=== PATIENT | female | born 1940 | race Caucasian/White ===

== ENCOUNTER 2017-02-27 02:42 | Inpatient (IN) | payer OTHER ==
[~2017-02-27] VITALS: Ht 160 cm; Wt 72.6 kg
[~2017-02-27 02:42] MED LIST: AMOX-CLAV 875-1 EACH PO; ASPIRIN EC81 M1 PO; BENZONATATE100 M1 PO; DAPSONE25 M1; FERROUS SULFAT325 M3 PO; FUROSEMIDE20 M1 PO; GUAIFENESIN-COD10 ML PO; LEVOTHYROXINE100 MC1 PO; MAGIC MOUTHWASH PO; MAGNESIUM500 M2 PO; METOPROLOL TART25 M1 PO; PRAVACHOL40 M1 PO; PREDNISONE20 M1 PO; PROAIR HFA8.5 GM INH; TYLENOL WITH C1 EACH PO
--- NOTE | 2017-02-27 09:42 | Operative Report ---
Operative/Inv Procedure Report Surgery Date: 02/27/17 Name of Procedure: Right total knee arthroplasty Pre-Operative Diagnosis: Primary osteoarthritis right knee Post-Operative Diagnosis: Same Estimated Blood Loss: scant Surgeon/Surgical Services Asst: ARETHA DUNBAR,JUAN JOSE Blackwell Anesthesia: block (SPINAL) IV Fluids: See anesthesia record Implants: Corneliker adrianna posterior stabilize knee, size 3 femur, size 4 tibia, 27 patellar button and an 11 mm polyethylene insert Drains: None Specimens: to pathology Tourniquet: 53 minutes Complications: None Condition: Stable Operative Indication: Patient is a 76 female with primary osteoarthritis of the right knee. She failed conservative treatment including intra-articular cortisone injections and was indicated for surgical total knee arthroplasty. The risks and benefits the procedure were described to the patient in detail and she wished to proceed with the procedure. A skilled set of hands was necessary provided by physician radiology physician assistant Sami Blackwell who aided with retraction positioning and component assembly throughout the case. Operative/Procedure Note Note: Once informed consent was obtained and the correct limb was identified the patient brought to operative room placed on table supine position. After administration of spinal anesthesia the patient's right leg had a thigh tourniquet placed a Hansen catheter was placed and the right lower extremity is prepped and draped in usual sterile fashion. To begin the procedure standard midline incision was made. Sharp dissection was carried down through skin and subcutaneous tissue and fat. A medial parapatellar arthrotomy was made and the patella was everted. Fat pad is removed from the patellar tendon. Patella thickness was measured to be 22 mm and a planned resection of 9 mm was performed on the patellar.. The patella was then sized to be a 27 patellar symmetric button and the jig for the 27 patella was placed on the patella and the lug holes were drilled. Once this was done the patella was protected and retracted laterally and the knee was placed into flexion. Z retractors were placed to protect the medial and lateral collateral ligaments. The cruciate limits were resected. The lateral and medial menisci resected as much as possible sharply with a #10 blade. Step drill was used to enter the intramedullary canal of the femur and the intramedullary distal femoral cutting guide was placed. This was set for a 6 valgus cut with 10 mm resection. The distal femoral cut was made without complication and bone was passed off as specimen. The distal femur was then sized with the sizing guide to be a size 3 femur. A a size 3 4-in-1 cutting block was placed in the distal femur and the anterior, posterior, chamfer cuts on the femur were made without complication. Bone was passed off. Curved osteotomes were used to remove any osteophytes posteriorly on the condyles. Next the box cut guide was placed on the distal femur for a size 3 femur and the box cut was made without compensation with an oscillating saw. At this point a pickle fork retractor was placed behind the tibia and the tibia was translated anteriorly after the cruciate 7 completely removed. The remainder of the menisci removed. A step drill was used to enter the intramedullary canal of the tibia for the cutting guide. The tibial cutting guide was placed and a 4 mm resection off of the lateral side of the knee was performed. The tibial cut bone was passed off as specimen as well. The tibia was then sized to be a size 4 tibia. A trial reduction was done with a [address] with a 9 mm polyethylene insert and a #3 femur and the 27 button. The patella tracked very nicely however we did do a slight lateral release. The knee had full extension and 120 of flexion. The knee was basically stable to varus and valgus stress at 0 and 60. The rotation of the tibial component was marked and the components removed. The tibial component was then pinned in the proper rotation and the keel cut was made. At this point all entrance removed the knee was placed in extension and the knee was pulse lavaged. Once the pulse lavage was done EXPAREL was injected throughout the knee. The cement was mixed on the back table. The components were cemented in place with the tibial component cemented first followed by the femoral component and the patellar button. All excess cement was removed with curette. Knee had the 9 mm trial insert placed and was placed in full extension while cement hardened. Once the cement hardened the knee was taken through a range of motion again. I found the knee to be slightly lax with valgus stress so we went up to an 11 mm polyethylene insert. The knee still had full extension with 120 of flexion with excellent tracking of the patellar button. The knee was stable at 0 and 60 now to varus and valgus stress. A 11 mm polyethylene insert was opened and placed onto the tibial tray and locked in place. Knee was pulse lavaged one final time and the tourniquet was released. The arthrotomy is closed with #1 Vicryl interrupted sutures. The subcutaneous tissues closed with #1 Vicryl and 2-0 Vicryl interrupted sutures and the skin was closed issac. A sterile dressing was applied and the patient was awakened taken recovery in stable condition.
--- NOTE | 2017-02-27 12:50 | NUR ---
NSG NOTE: PATIENT ARRIVED TO FLOOR AT 1250 FROM PACU VIA STRETCHER ACCOMPANIED BY DISTRIBUTION; PATIENT AWAKE A/OX3, RA; VSS; RT KNEE CHERYL WRAP DSG C/D/I; PATIENT STATES PAIN IS 7/10 TO RT KNEE; ON-Q TO RT ADDUCTOR INTACT; IVF RUNNING PER ORDER; MIN IN PLACE; ORIENTED TO ROOM, CALL AZEVEDO IN REACH; WILL CONT TO MONITOR
[2017-02-27 13:00] VITALS: BP 142/78
[2017-02-27 15:00] VITALS: BP 153/86
--- NOTE | 2017-02-27 16:05 | PN- Orthopedic ---
Subjective Subjective: No acute post operative events reported. Patient is POD 0, s/p right TKR. Has ambulated with rolling walker for a short distance. Denies chest pain, shortness of breath, difficulty breathing. Denies nausea and vomitting, has tolerated diet. Has carrizales catheter in place. Has on Q. Pain is controlled now. Objective Vital Signs and I&Os Vital Signs Date Time Temp Pulse Resp B/P B/P Pulse O2 O2 Flow FiO2 Mean Ox Delivery Rate 02/27 1300 98.0 63 16 142/78 93 Room Air Intake & Output 02/27 1600 02/27 0800 02/27 0000 02/26 1600 02/26 0800 02/26 0000 Intake Total Output Total 450 Balance -450 Output, Urine 450 Patient 160 lb Weight Weight Reported by Patient Measurement Method Physical Exam: General: Alert and oriented x3. no acute distress Cardiac: RRR, s1s2 Pulmonary: CTA bilaterally Abdomen: Soft, non-tender, non-distended Extremities: Moves all extremties, distal sensation intact. Motor 5/5 in plantar and dorsi flexion. Skin warm and well perfused. DP pulses palpable bilaterally. Bilateral calves soft and non-tender. Surgical Site: Right knee. Dressing dry and intact. On Q in place. No evidence of leaking. Assessment/Plan Assessment/Plan This is a 76 year old female, POD 0, s/p R tkr -Coumadin for dvt ppx to start tonight -ALPS and ambulation for mechanical ppx -Vancomycin for 24 hours for abx ppx -Percocet po for pain -Regular diet as tolerated -Activity: OOB with PT, wbat, knee immobilzer if quad function compromised -Dispo planning: Home with services in 2-3 nights, [facility] Will discuss with DR. Rojas Core Measures/Miscellaneous Venous Thromboembolism VTE Risk Factors: Age > 40, Surgery VTE Contraindications: No Contraindications VTE Diagnosis: Yes Beta Noel Is Beta Noel a Home Med? No Antibiotics Is Patient on Antibiotics? Yes If Yes: prophylaxis
[2017-02-27 17:12] VITALS: BP 122/64
[2017-02-27 20:06] VITALS: BP 112/61
[2017-02-27 22:46] VITALS: BP 146/80
[2017-02-28 02:49] VITALS: BP 130/80
[2017-02-28 06:53] VITALS: BP 140/80
--- NOTE | 2017-02-28 07:27 | PN- Orthopedic ---
Subjective Subjective: Patient is postop day #1 status post right total knee arthroplasty. She is doing well. No major complaints. Pain is well-controlled. Objective Vital Signs and I&Os Vital Signs Date Time Temp Pulse Resp B/P B/P Pulse O2 O2 Flow FiO2 Mean Ox Delivery Rate / 0653 97.3 57 18 140/80 97 Room Air / 0249 97.2 50 18 130/80 95 Room Air / 2246 97.8 52 18 146/80 93 / 2157 60 120/60 / 2006 97.5 53 20 112/61 94 /07 1712 98.6 56 18 122/64 95 06/07 1602 70 153/86 06/ 1500 98.9 70 16 153/86 93 Room Air / 1300 98.0 63 16 142/78 93 Room Air Intake & Output / 0800 06/08 0000 /07 1600 / 0800 06/ 0000 / 1600 Intake Total 800 500 525 Output Total 800 575 450 Balance 0 -75 75 Intake, IV 600 300 75 Intake, Oral 200 200 450 Number 0 0 0 Bowel Movements Output, Urine 800 575 450 Patient 160 lb Weight Weight Reported by Patient Measurement Method On physical exam the patient is resting comfortably. She is awake alert and oriented. The right lower extremity dressings in place. The right lower extremity is grossly neurovascularly intact. She is moving all of her toes. Assessment/Plan Assessment/Plan Status post right total knee arthroplasty. The patient's plan today will be for physical therapy weightbearing as tolerated and range of motion to the right knee. Continue with anticoagulation. Follow-up labs this morning. Core Measures/Miscellaneous Venous Thromboembolism VTE Risk Factors: Age > 40, Surgery VTE Contraindications: No Contraindications VTE Diagnosis: Yes Beta Noel Is Beta Noel a Home Med? No Antibiotics Is Patient on Antibiotics? Yes If Yes: prophylaxis
[2017-02-28 09:09] LABS: ABSOLUTE BASOPHIL COUNT 0 /CUMM (0.0-0.2); ABSOLUTE EOSINOPHIL COUNT 0 /CUMM (0.0-0.7); ABSOLUTE GRANULOCYTE CT 8.9 /CUMM (1.4-6.5); ABSOLUTE LYMPH COUNT 1.1 /CUMM (1.2-3.4); ABSOLUTE MONOCYTE COUNT 0.8 /CUMM (0.10-0.60); BASOPHIL % 0.2 % (0.0-2.0); EOSINOPHIL % 0 % (0-5); GRANULOCYTE % 82.7 % (42.2-75.2); HEMATOCRIT 33.9 % (37-47); MEAN CORPUSCULAR HGB 31.9 PG (27.0-31.0); MEAN CORPUSCULAR HGB CONC 32.8 G/DL (33.0-37.0); MEAN CORPUSCULAR VOLUME 97.4 FL (81.0-99.0); MEAN PLATELET VOLUME 9.6 FL (7.4-10.4); PLATELET COUNT 204 /CUMM (130-400); RBC DISTRIBUTION WIDTH 12.7 % (11.5-14.5); RED BLOOD CELL CT 3.48 /CUMM (4.20-5.40); WHITE BLOOD CELL COUNT 10.7 /CUMM (4.8-10.8)
[2017-02-28 14:40] VITALS: BP 132/60
--- NOTE | 2017-02-28 16:22 | Surgical Discharge Summary ---
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 Home Who Do You Live With? Significant Other Services at Home: None What is Your Primary Language? Czech Review of Systems: See H and P Hospital Course Course Attending Physician: JUAN JOSE CARIAS MD Primary Care Physician: RUDY DUNBAR,[facility] Course: Pt is a 76yo female who underwent a R TKR by Dr Crystal balbuena 02/27. She tolerated the procedure well and was returned to the recovery room in good condition. Postoperatively she was on eliquis for DVT prophylaxis. Over the course of her stay, her pain was well controlled, she was able to void spontaneously, she tolerated a regular diet and she worked with PT. She was cleared by PT for discharge. Allergies: Coded Allergies: erythromycin base (HIVES 04/03/16) latex (RASH 04/03/16) Significant Procedures: R TKR - see operative report Disposition Summary Disposition Principal Diagnosis: DJD Additional Diagnosis: hld, autoimmune, htn Discharge Disposition: home health services Discharge Instructions General Discharge Information Code Status: Full Code Patient's Diet: regular Patient's Activity: Weight-bearing as tolerated right lower extremity Follow-Up Instructions/Appts: Call Dr. Easley's office for staple removal in 2 weeks Copies To: CRYSTAL DUNBAR,JUAN JOSE Sanabria
--- NOTE | 2017-02-28 19:53 | NUR ---
PT WORKED WITH PATIENT TODAY, AMBULATED AROUND FLOOR AND DID STAIRS. C/O INCREASED PAIN FROM YESTERDAY. MEDICATED PER EMAR WITH PERCOCET. SEEN BY ANESTHESIA WHO INCREASED ON Q PUMP TO 14ML/HR. PATIENT VISITING WITH PATIENT MOST OF SHIFT. SAFETY MAINTAINED.
[2017-02-28 21:48] VITALS: BP 124/68
--- NOTE | 2017-03-01 00:13 | NUR ---
NURSING NOTE: PATIENT C/O 1O/10 PAIN IN RIGHT KNEE AT THIS TIME. A&OX3, GUARDING KNEE, NEW ICE PACK APPLIED TO AREA. ALL AVAILABLE PAIN MEDICATIONS PREVIOUSLY GIVEN. JAYDEN SIBLEY 416 MADE AWARE; GIVE PRN PERCOCET 2 TABS 1 HOUR EARLY PER MD & EMAR. WILL CONTINUE TO MONITOR.
[2017-03-01 00:50] VITALS: BP 120/60
[2017-03-01 06:25] VITALS: BP 150/74
--- NOTE | 2017-03-01 07:21 | PN- Orthopedic ---
See Addendum Subjective Subjective: POD#2 S/P RIGHT TKA SEVERE RIGHT KNEE PAIN OVERNIGHT SHE THINKS HIS MAY BE RELATED TO A LOT OF PT YESTERDAY VERY UNCOMFORTABLE TODAY WITH DRSG CHANGE THIS AM DENIES CP, SOB, NO N+V WITH DIET AMBULATING WITH PT, WANTS TO GO HOME UPON D/C Objective Vital Signs and I&Os Vital Signs Date Time Temp Pulse Resp B/P B/P Pulse O2 O2 Flow FiO2 Mean Ox Delivery Rate 03/01 0625 99.4 65 20 150/74 92 Room Air / 0050 98.4 65 24 120/60 95 Room Air / 2148 99.0 57 20 124/68 96 06/08 2119 57 124/68 /08 1440 98.5 60 20 132/60 93 Room Air 02/28 1012 64 134/71 Intake & Output / 0800 06/09 0000 06/08 1600 /08 0800 06/08 0000 /07 1600 Intake Total 600 500 800 500 525 Output Total 400 500 800 575 450 Balance 200 0 0 -75 75 Intake, IV 0 600 300 75 Intake, Oral 600 500 200 200 450 Number 0 0 0 Bowel Movements Output, Urine 400 500 800 575 450 Patient 160 lb Weight Weight Reported by Patient Measurement Method Physical Exam: CV: RRR LUNGS: CLEAR ABD: SOFT, +BS EXT: DRSG CHANGED, WOUND C/D/I CALVES SOFT, BILAT BILAT DISTAL CMS INTACT Assessment/Plan Assessment/Plan ORTHO STABLE PAIN CONTROL ISSUES PLAN TORADOL X1 NOW ELIQUIS FOR DVT PROPHYLAXIS CONTINUE OOB WITH PT HOME D/C PLANNING Core Measures/Miscellaneous Venous Thromboembolism VTE Risk Factors: Age > 40, Surgery VTE Contraindications: No Contraindications VTE Diagnosis: Yes Beta Noel Is Beta Noel a Home Med? No Antibiotics Is Patient on Antibiotics? Yes If Yes: prophylaxis
--- NOTE | 2017-03-01 10:18 | RADIOLOGY REPORT ---
EXAMINATION: XR KNEE, RIGHT CLINICAL INFORMATION: Status post right total knee arthroplasty COMPARISON: None TECHNIQUE: Two views of the right knee. FINDINGS: Patient is status post right total knee arthroplasty. Hardware components appear well-seated and in anatomic alignment. No acute fracture is seen. There are postsurgical changes of the posterior aspect of the patella. There is soft tissue edema and soft tissue gas about the knee along with anterior skin issac. IMPRESSION: Appropriate alignment of the right total knee arthroplasty.
[2017-03-01 14:39] VITALS: BP 143/78
[2017-03-01 22:15] VITALS: BP 136/73
[2017-03-02 07:03] VITALS: BP 146/70
--- NOTE | 2017-03-02 09:00 | PN- Orthopedic ---
Subjective Subjective: pod#3 s/p right tka no major issues overnight deneis cp, sob, no n+v with diet doing well with pt tolerating diet Objective Vital Signs and I&Os Vital Signs Date Time Temp Pulse Resp B/P B/P Pulse O2 O2 Flow FiO2 Mean Ox Delivery Rate / 0703 98.4 66 20 146/70 93 Room Air 03/01 2215 98.4 68 20 136/73 94 Room Air 03/01 2132 136/72 / 1439 99.0 65 20 143/78 94 Room Air 03/01 1028 80 134/62 Intake & Output / 1600 03/02 0800 03/02 0000 03/01 1600 03/01 0800 03/01 0000 Intake Total 120 720 510 600 Output Total 400 300 400 Balance -280 720 210 200 Intake, IV 30 Intake, Oral 120 720 480 600 Number 0 Bowel Movements Output, Urine 400 300 400 Physical Exam: cv: rrr lungs: clear abd: soft, +bs ext: no edema no calf tnderness distal cms intact Assessment/Plan Assessment/Plan ortho stable plan ok for home d/c today Core Measures/Miscellaneous Venous Thromboembolism VTE Risk Factors: Age > 40, Surgery VTE Contraindications: No Contraindications VTE Diagnosis: Yes Beta Noel Is Beta Noel a Home Med? No Antibiotics Is Patient on Antibiotics? Yes If Yes: prophylaxis
--- NOTE | 2017-03-02 09:16 | Patient Discharge Instructions ---
Discharge Instructions General Discharge Information You were seen/treated for: Primary osteoarthritis right knee You had these procedures: Right total knee arthroplasty Watch for these problems: Temp greater than 101.5, increased wound drainage/redness, increased right knee pain with ambulation Call Surgeon to remove: Mikey No bath, but you may shower: Yes Other wound care: Keep wound clean and dry, dry sterile dressing to right knee daily Diet Continue normal diet: Yes Activity Activity Limited to: Weight bear as tolerated Other activity limits: No strenuous activity Acute Coronary Syndrome Inclusion Criteria At DC or during hospital stay patient has or had the following: ACS DIAGNOSIS No Discharge Core Measures Meds if any: Prescribed or Continued at Discharge Meds if any: NOT Prescribed or Continued at Discharge Congestive Heart Failure Inclusion Criteria At DC or during hospital stay patient has or had the following: CHF DIAGNOSIS No Discharge Core Measures Meds if any: Prescribed or Continued at Discharge Meds if any: NOT Prescribed or Continued at Discharge Cerebrovascular accident Inclusion Criteria At DC or during hospital stay patient has or had the following: CVA/TIA Diagnosis No Discharge Core Measures Meds if any: Prescribed or Continued at Discharge Meds if any: NOT Prescribed or Continued at Discharge Venous thromboembolism Inclusion Criteria VTE Diagnosis No VTE Type NONE VTE Confirmed by (Test) NONE Discharge Core Measures - Per Current guidelines, there needs to be overlap - treatment for the first 5 days of Warfarin therapy. - If discharged on Warfarin prior to 5 days of - overlap therapy, the patient will need to be - assessed for post discharge needs including - *Post discharge parental anticoagulation - *Warfarin and/or parental anticoagulation education - *Follow up date to check INR post discharge At least 5 days overlap therapy as Inpatient No Meds if any: Prescribed or Continued at Discharge Note: Overlap Therapy is Warfarin and Anticoagulant Meds if any: NOT Prescribed or Continued at Discharge
[2017-03-02] MEDS ORDERED: DOCUSATE SODIU100 M3 PO (09:21)
[2017-03-02] MEDS ORDERED: PERCOCET 5-3251 EACH PO (09:21)
[2017-03-02] MEDS ORDERED: MIRALAX119 GM PO (09:21)
[2017-03-02] MEDS ORDERED: ELIQUIS2.5 M1 PO (09:21)
[2017-03-02 10:53] VITALS: BP 124/66
== END 2017-03-02 12:43 | disposition home health service (06) | DRG 470 ==
LOC: 2NB 02:42 → SDA 02:42 → ENRESERV 11:40 → ENTRNSPT 12:28 → EDTRNSPTTYP 12:36 → EDTRNSPT 12:36 → 2NB 12:45 → CMPTRNSPT 12:52 → ENPENDDIS 03-02 09:36 → 2NB 03-02 12:43
PROVIDERS: Physician Assistant Surgical; ADMIT Orthopaedic Surgery Foot and Ankle Surgery
PROC: 0SRC0J9 Replacement of Right Knee Joint with Synthetic Substitute, Cemented, Open Approach (ICD-10-PCS; principal; 2017-02-27)
DX: M17.11 Unilateral primary osteoarthritis, right knee (principal); L10.0 Pemphigus vulgaris; I10 Essential (primary) hypertension; I25.10 Atherosclerotic heart disease of native coronary artery without angina pectoris; E78.5 Hyperlipidemia, unspecified; K21.9 Gastro-esophageal reflux disease without esophagitis; E03.9 Hypothyroidism, unspecified; I65.29 Occlusion and stenosis of unspecified carotid artery; G47.33 Obstructive sleep apnea (adult) (pediatric)
CPT/HCPCS: 2NBP; 36415; 73560-RT; 82436; 87086; 88305; 97110-GO; 97116-GO; 97161-GP; 97530-GO; C1713; C9290; J0131; J1885; J2795; J3370; J7040

== ENCOUNTER 2018-02-24 21:59 | Observation (INO) | payer OTHER ==
[~2018-02-24] VITALS: Ht 160 cm; Wt 64.4 kg
[~2018-02-24 21:59] MED LIST changes: +DOCUSATE SODIU100 M3 PO; +ELIQUIS2.5 M1 PO; +MIRALAX119 GM PO; +PERCOCET 5-3251 EACH PO
--- NOTE | 2018-02-24 22:23 | ED GENERAL ADULT ---
See Addendum History of Present Illness General Chief Complaint: General Adult Stated Complaint: HYPOGLYCEMIA Source: patient, family, old records, EMS Exam Limitations: no limitations Vital Signs & Intake/Output Vital Signs & Intake/Output Vital Signs Date Time Temp Pulse Resp B/P B/P Pulse O2 O2 Flow FiO2 Mean Ox Delivery Rate 02/25 0825 98.7 66 18 125/58 99 Room Air 02/25 0134 97.5 68 18 150/92 99 Room Air 02/24 2251 98.2 66 18 118/70 97 Room Air ED Intake and Output 02/25 0000 02/24 1200 Intake Total 0 Output Total Balance 0 Intake, Oral 0 Allergies Coded Allergies: erythromycin base (HIVES 04/03/16) latex (RASH 04/03/16) morphine (Mild, MAKES HER "ANGRY" 08/17/17) polyethylene glycol 3350 (From MIRALAX) (Mild, MAKES HER "GAG" 08/17/17) Reconcile Medications Doxycycline Hyclate 100 MG CAPSULE 1 CAP PO BID ANTIBIOTIC (Reported) Furosemide 20 MG TABLET 1 TAB PO DAILY PRN EDEMA (Reported) Levothyroxine Sodium 100 MCG TABLET 1 TAB PO DAILY THYROID (Reported) Magnesium Oxide (Magnesium) 500 MG CAPSULE 1 CAP PO DAILY LEG CRAMPS ( Reported) Metoprolol Tartrate 25 MG TABLET 1 TAB PO BID BP (Reported) Oxycodone HCl/Acetaminophen (Percocet 5-325 MG Tablet) 5 MG-325 MG TABLET 1-2 TAB PO Q4-6 PRN PAIN Potassium Chloride 10 MEQ TABLET.ER 1 TAB PO DAILY SUPPLEMENT (Reported) Rosuvastatin Calcium (Crestor) 10 MG TABLET 1 TAB PO DAILY HYPERLIPIDEMIA ( Reported) Triage Note: BIBA FROM HOME. PER EMS, FAMILY REPORTED THAT THE PT WAS WEAK, NOT ACTING RIGHT, AND HAD SLURRED SPEECH. EMS STATED THAT PT DID NOT HAVE SLURRED SPEECH WHILE IN THEIR CARE BUT WAS SPEAKING SLOWLY. EMS STATED THAT ALL NEUROS WERE INTACT WHILE IN THEIR CARE. INITIAL BG = 39. SECOND BG = 68. EMS ADMINISTERED 1 TUBE ORAL GLUCOSE. 22 GA IV ESTABLISHED IN LEFT AC. AT THIS TIME, PT C/O "FEELING SHAKY AND WEAK." PT DENIES ANY OTHER COMPLAINTS AT THIS TIME. PT A&OX3 AND SPEAKING CLEARLY AT THIS TIME. NO NEURO DEFICITS NOTED NOW. Triage Nurses Notes Reviewed? yes HPI: Patient had a normal day and she did her normal activities. Shortly after dinner her family noticed that she was confused and was slurring her words. Family states that she was yelling at her which is highly unusual for her. EMS was contacted. EMS states that they did not notice any slurred speech however she was confused. A fingerstick was performed and her sugar was 39. Patient is not a diabetic. Patient was given oral glucose with resolution of her symptoms. Patient currently feels fine and has no current complaints. (Arnav DUNBAR,Carter Bolden) Past History Travel History Traveled to [place] past 21 day No Medical History Any Pertinent Medical History? 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 No (Arnav DUNBAR,Carter Bolden) Review of Systems Review of Systems Constitutional: Reports: no symptoms. EENTM: Reports: no symptoms. Respiratory: Reports: no symptoms. Cardiovascular: Reports: no symptoms. GI: Reports: no symptoms. Genitourinary: Reports: no symptoms. Musculoskeletal: Reports: no symptoms. Skin: Reports: no symptoms. Neurological/Psychological: Reports: see HPI. Hematologic/Endocrine: Reports: no symptoms. Immunologic/Allergic: Reports: no symptoms. All Other Systems: Reviewed and Negative (Arnav DUNBAR,Carter Bolden) Physical Exam Physical Exam General Appearance: well developed/nourished, alert, awake, anxious, mild distress Head: atraumatic, normal appearance Eyes: Bilateral: PERRL, EOMI. Ears, Nose, Throat: normal pharynx, normal ENT inspection, hearing grossly normal Neck: normal inspection, supple, full range of motion Respiratory: normal breath sounds, chest non-tender, no respiratory distress, lungs clear Cardiovascular: regular rate/rhythm, normal peripheral pulses Gastrointestinal: normal bowel sounds, soft, non-tender, no organomegaly Back: normal inspection, normal range of motion Extremities: normal inspection, normal capillary refill, normal range of motion, no edema Neurologic/Psych: no motor/sensory deficits, awake, alert, oriented x 3, normal gait, normal mood/affect Skin: intact, normal color, warm/dry Lymphatic: no anterior cervical joe Core Measures ACS in differential dx? No CVA/TIA Diagnosis: No Sepsis Present: No Sepsis Focused Exam Completed? No (Arnav DUNBAR,Carter Bolden) Progress Differential Diagnoses I considered the following diagnoses in my evaluation of the patient: [ ELECTROLYTE ABNORMALITY, HYPOGLYCMIEA, MASS] Plan of Care: Orders Procedure Date/time Status Consistent Carbohydrate 1 02/25 L Active Regular Diet 02/25 B Complete POTASSIUM 02/25 0800 Complete INSULIN,SERUM 02/25 0800 Complete GLUCOSE 02/25 0800 Complete C-PEPTIDE Ref$ 02/25 0800 Active CORTISOL AM 02/25 0800 Complete Add-on Test (ER Only) 02/25 0554 Active TROPONIN LEVEL 02/25 0152 Complete EKG 02/[address] in observation 02/25 0113 Active ED Holding Orders 02/25 0113 Active Patient Data 02/25 0113 Active Vital Signs 02/25 0113 Active Code Status 02/25 0113 Active Add-on Test (ER Only) 02/24 2322 Active THYROID STIMULATING HORMONE 02/24 2230 Complete TOTAL TRIODOTHYROXINE 02/24 2230 Complete MAGNESIUM 02/24 2230 Complete FREE T4 02/24 2230 Complete URINALYSIS 02/24 2222 Complete TROPONIN LEVEL 02/24 2222 Complete INSULIN,SERUM 02/24 2222 Complete COMPREHENSIVE METABOLIC PANEL 02/24 2222 Complete CBC WITHOUT DIFFERENTIAL 02/24 2222 Complete EKG 02/24 2222 Active Intake & Output 02/24 2218 Active FingerStick- Glucose 02/24 2206 Active Laboratory Tests 02/25/18 0821: Glucose 91, Insulin Level 5.2, Cortisol AM Sample 12.6 02/25/18 0821: C-Peptide Pending 02/25/18 0418: Urine Color YEL, Urine Clarity CLEAR, Urine pH 6.0, Ur Specific [place] 1.010, Urine Protein NEG, Urine Ketones TRACE H, Urine Nitrite NEG, Urine Bilirubin NEG, Urine Urobilinogen 0.2, Ur Leukocyte Esterase NEG, Ur Microscopic EXAM NOT REQUIRED, Urine Hemoglobin NEG, Urine Glucose NEG 02/25/18 0223: Troponin I 0.03 02/24/18 2230: Anion Gap 13, Estimated GFR > 60, BUN/Creatinine Ratio 20.0, Glucose 115 H, Insulin Level 31.7 H, Calcium 8.9, Magnesium 1.8, Total Bilirubin 0.4, AST 30, ALT 28, Alkaline Phosphatase 62, Troponin I < 0.01, Total Protein 6.0 L, Albumin 3.7, Globulin 2.3, Albumin/Globulin Ratio 1.6, TSH 0.398, Free T4 1.22, Total T3 1.02, CBC w Diff NO MAN DIFF REQ, RBC 4.05 L, MCV 90.3, MCH 30.1, MCHC 33.3, RDW 13.5, MPV 8.9, Gran % 68.4, Lymphocytes % 23.9, Monocytes % 4.8, Eosinophils % 2.6, Basophils % 0.3, Absolute Granulocytes 5.9, Absolute Lymphocytes 2.1, Absolute Monocytes 0.4, Absolute Eosinophils 0.2, Absolute Basophils 0 Diagnostic Imaging: Viewed by Me: CT Scan. Discussed w/RAD: CT Scan. Radiology Impression: PATIENT: JEFF CANTU PRESENT AGE: 77 PATIENT ACCOUNT NO: [id number] : 42 LOCATION: [facility] ORDERING PHYSICIAN: Carter José MD SERVICE DATE: 02/24/18 EXAM TYPE: CAT - CT HEAD WO IV CONTRAST EXAMINATION: CT HEAD WITHOUT CONTRAST CLINICAL INFORMATION: Confusion, hypoglycemic, question CVA COMPARISON: 06/25/2009 TECHNIQUE: Contiguous axial imaging was performed from the skull base to vertex without intravenous administration of contrast. DLP: 600.54 mGy-cm FINDINGS: There is no evidence of acute intracranial hemorrhage or territorial infarction. No abnormal mass effect or midline shift is seen. Walden to white matter differentiation is well preserved. No extra-axial fluid collections are identified. The ventricles are normal in size. There is mild periventricular white matter hypoattenuation consistent with chronic small vessel ischemic disease. Mild volume loss is noted. The osseous structures and soft tissues are normal. The mastoid air cells and visualized portions of the paranasal sinuses are well aerated. IMPRESSION: No acute intracranial pathology. DICTATED BY: Martin Owen MD DATE/TIME DICTATED:02/25/1821 VP STRATEGY:LON DATE/TIME TRANSCRIBED:02/25/1821 CONFIDENTIAL, DO NOT COPY WITHOUT APPROPRIATE AUTHORIZATION. <Electronically signed in Other Vendor System> SIGNED BY: Martin Owen MD 02/25/1827, PATIENT: JEFF CANTU PRESENT AGE: 77 PATIENT ACCOUNT NO: [id number] : 42 LOCATION: [facility] ORDERING PHYSICIAN: Carter José MD SERVICE DATE: EXAM TYPE: CAT - CT ABD & PELVIS W IV CONTRAST; CT CHEST W IV CONTRAST EXAMINATION: CONTRAST-ENHANCED CT OF THE CHEST; CONTRAST-ENHANCED CT OF THE ABDOMEN AND PELVIS INDICATION: Confusion, hypoglycemia, question infection COMPARISON: None TECHNIQUE: 95 mL Optiray 320 IV contrast was utilized. Multidetector helical imaging was performed through the chest, abdomen, and pelvis. Coronal and sagittal reformatted images were created at the technologist workstation. DLP: 441.43 mGy-cm FINDINGS: Chest: No regions of pulmonary consolidation. Tiny nodules adjacent to the left major fissure and right minor fissure are likely benign and suggestive of lymph nodes. No pneumothorax or pleural effusion. The visualized thyroid gland is unremarkable. There are subcentimeter mediastinal lymph nodes within the range of normal variation. Cardiac size is within normal limits; no pericardial effusion. Coronary artery calcifications are present. There is atherosclerotic calcification along the aorta. No axillary lymphadenopathy is present. Abdomen/Pelvis: Patient is status post cholecystectomy. There is intrahepatic biliary ductal dilatation which may be physiologic in this setting. The common bile duct appears near the upper limits of normal in caliber for the postcholecystectomy state. No focal hepatic abnormality is seen. The spleen, pancreas, and adrenal glands are within normal limits. Bilateral nephrograms are symmetric. No hydronephrosis. No obstructing renal or ureteral calculi are present. The urinary bladder is unremarkable. There are postsurgical changes along the stomach suggesting prior gastric bypass surgery. No evidence of bowel obstruction or significant wall thickening. The appendix is unremarkable. No free fluid or free air is identified. There is atherosclerotic calcification along the aorta. No retroperitoneal or pelvic lymphadenopathy is seen. Degenerative changes are noted in the spine. IMPRESSION : 1. Intrahepatic biliary ductal dilatation, of uncertain clinical significance and possibly physiologic in the setting of prior cholecystectomy. 2. No additional acute findings identified in the chest, abdomen, or pelvis. DICTATED BY: Martin Owen MD DATE/TIME DICTATED:02/25/1838 VP STRATEGY: LON DATE/TIME TRANSCRIBED:02/25/1838 CONFIDENTIAL, DO NOT COPY WITHOUT APPROPRIATE AUTHORIZATION. <Electronically signed in Other Vendor System> SIGNED BY: Martin Owen MD 02/25/18 0056 Initial ED EKG: NSR, nonspecific ST T wave chg Prior EKG: unchanged Repeat EKG: unchanged Rhythm Strip: normal sinus rhythm Hand-Off Endorsed To: Emeka Allred DO Endorsed Time: 0700 Pending: labs Comments: Discussed with Dr. syed, labs were redrawn at 8 AM. The patient is to remain nothing by mouth until then with out of the fingersticks. (Arnav DUNBAR,Carter Bolden) Comments: Attending physician addendum at 0957 hours on 02/25/2018, Dr. Emeka Allred: I assumed care from Dr. José at the time of shift change. At that time the patient was in ED observation status and we were awaiting consultation from Dr. syed from endocrinology as well as morning laboratory values including repeat insulin level, repeat cortisol, fingerstick glucose, and potassium levels. Those studies came back showing significant improvement in her. She elevated insulin level of 31, now 5.2; her cortisol is within normal range at 12.6; her fingerstick glucose is 91, and her potassium has increased from 3-4.7. She did have a slight bump in her troponin which was previously less than 0.01, and is now 0.03. However, I discussed this with her at length and she has reported no chest pain or other cardiac features whatsoever. Therefore, being that this is still within the margin of error, and my suspicion for acute coronary syndrome is low, I feel that it is not mandatory to follow-up on that acutely. The patient strongly desires to return home, and Dr. syed feels that this is reasonable. She asked that the patient check her fingerstick glucose 3 times daily, stick to a low-carb and high protein diet, and follow-up with them in the office in 2-3 weeks, or sooner if she presses further hypoglycemic episodes. The patient agrees to this plan, and was stable at time of discharge. (Emeka Allred DO) Departure Departure Disposition: STILL A PATIENT Condition: Stable Clinical Impression Primary Impression: Hypoglycemia Referrals: Jose DUNBAR,Carter Thompson MD,[place] (PCP/Family) Additional Instructions: FOLLOW UPW ITH DR. SHIRLEY RETURN IF SYMPTOMS WORSEN OR FOR ANY CONCERNS Departure Forms: Customer Survey General Discharge Information (Carter José MD) Critical Care Note Critical Care Note Critical Care Time: mins: (90 MIN) (Carter José MD) ED Attending Observation Initial Observation Note: I have seen and personally examined JEFF CANTU on 02/25/18 at 0113. I agree with the current emergency department documentation. The disposition (admission or discharge) is uncertain at this time, she needs a period of observation for the following reason(s): [FREQ FINGER STICKS, REPEAT TROP, RE- EVAL] The ED Nurse caring for this patient has been personally informed as to what the patient is being observed for. Observation Re-Evaluation: I have reevaluated JEFF CANTU on 02/25/18 at 0412. The physical findings that support the continued need to observe this patient include [patient's finger stick his tongue to 59. Patient will be given juice to drink and we will continue to closely monitor.]. (Carter José MD)
[2018-02-24 22:39] LABS: ABSOLUTE BASOPHIL COUNT 0 /CUMM (0.0-0.2); ABSOLUTE EOSINOPHIL COUNT 0.2 /CUMM (0.0-0.7); ABSOLUTE GRANULOCYTE CT 5.9 /CUMM (1.4-6.5); ABSOLUTE LYMPH COUNT 2.1 /CUMM (1.2-3.4); ABSOLUTE MONOCYTE COUNT 0.4 /CUMM (0.10-0.60); BASOPHIL % 0.3 % (0.0-2.0); EOSINOPHIL % 2.6 % (0-5); GRANULOCYTE % 68.4 % (42.2-75.2); HEMATOCRIT 36.6 % (37-47); MEAN CORPUSCULAR HGB 30.1 PG (27.0-31.0); MEAN CORPUSCULAR HGB CONC 33.3 G/DL (33.0-37.0); MEAN CORPUSCULAR VOLUME 90.3 FL (81.0-99.0); MEAN PLATELET VOLUME 8.9 FL (7.4-10.4); PLATELET COUNT 203 /CUMM (130-400); RBC DISTRIBUTION WIDTH 13.5 % (11.5-14.5); RED BLOOD CELL CT 4.05 /CUMM (4.20-5.40); WHITE BLOOD CELL COUNT 8.6 /CUMM (4.8-10.8)
[2018-02-24] MEDS ORDERED: CRESTOR10 M1 PO (22:59)
[2018-02-24] MEDS ORDERED: POTASSIUM CHLO10 ME4 PO (22:59)
[2018-02-24] MEDS ORDERED: DOXYCYCLINE HY100 M2 PO (23:00)
--- NOTE | 2018-02-25 00:28 | CT SCAN REPORT ---
EXAMINATION: CT HEAD WITHOUT CONTRAST CLINICAL INFORMATION: Confusion, hypoglycemic, question CVA COMPARISON: 06/25/2009 TECHNIQUE: Contiguous axial imaging was performed from the skull base to vertex without intravenous administration of contrast. DLP: 600.54 mGy-cm FINDINGS: There is no evidence of acute intracranial hemorrhage or territorial infarction. No abnormal mass effect or midline shift is seen. Walden to white matter differentiation is well preserved. No extra-axial fluid collections are identified. The ventricles are normal in size. There is mild periventricular white matter hypoattenuation consistent with chronic small vessel ischemic disease. Mild volume loss is noted. The osseous structures and soft tissues are normal. The mastoid air cells and visualized portions of the paranasal sinuses are well aerated. IMPRESSION: No acute intracranial pathology.
--- NOTE | 2018-02-25 00:56 | CT SCAN REPORT ---
EXAMINATION: CONTRAST-ENHANCED CT OF THE CHEST; CONTRAST-ENHANCED CT OF THE ABDOMEN AND PELVIS INDICATION: Confusion, hypoglycemia, question infection COMPARISON: None TECHNIQUE: 95 mL Optiray 320 IV contrast was utilized. Multidetector helical imaging was performed through the chest, abdomen, and pelvis. Coronal and sagittal reformatted images were created at the technologist workstation. DLP: 441.43 mGy-cm FINDINGS: Chest: No regions of pulmonary consolidation. Tiny nodules adjacent to the left major fissure and right minor fissure are likely benign and suggestive of lymph nodes. No pneumothorax or pleural effusion. The visualized thyroid gland is unremarkable. There are subcentimeter mediastinal lymph nodes within the range of normal variation. Cardiac size is within normal limits; no pericardial effusion. Coronary artery calcifications are present. There is atherosclerotic calcification along the aorta. No axillary lymphadenopathy is present. Abdomen/Pelvis: Patient is status post cholecystectomy. There is intrahepatic biliary ductal dilatation which may be physiologic in this setting. The common bile duct appears near the upper limits of normal in caliber for the postcholecystectomy state. No focal hepatic abnormality is seen. The spleen, pancreas, and adrenal glands are within normal limits. Bilateral nephrograms are symmetric. No hydronephrosis. No obstructing renal or ureteral calculi are present. The urinary bladder is unremarkable. There are postsurgical changes along the stomach suggesting prior gastric bypass surgery. No evidence of bowel obstruction or significant wall thickening. The appendix is unremarkable. No free fluid or free air is identified. There is atherosclerotic calcification along the aorta. No retroperitoneal or pelvic lymphadenopathy is seen. Degenerative changes are noted in the spine. IMPRESSION: 1. Intrahepatic biliary ductal dilatation, of uncertain clinical significance and possibly physiologic in the setting of prior cholecystectomy. 2. No additional acute findings identified in the chest, abdomen, or pelvis.
[2018-02-25 08:25] VITALS: BP 125/58
--- NOTE | 2018-02-25 12:25 | Cons- Endocrinology ---
General Information and HPI Consulting Request Date of Consult: 02/25/18 Requested By: ER Reason for Consult: evaluation of hypoglycemia Source of Information: patient Exam Limitations: no limitations History of Present Illness: Patient is a 77 years old female who has had hx of hypothyroidism and gastric bypass surgery done in 2002 ( lost 100 pounds) and revised Alan-En -Y Gastric bypass in 2012 ( lost another 30 pounds), was in usual status of health, presented with hypoglycemia of glucose level of 39. Patient had a normal day yesterday during the day. Shortly after dinner her family noticed that she was confuseds. EMS was contacted. A fingerstick was performed and her sugar was 39. Patient is not a diabetic. Patient was given oral glucose with resolution of her symptoms. In ER, the blood work showed glucose level of 115, Cr 0.8, TSH 0.398, free T4 1.22 and TT3 1.02, Insulin 31.7. Overnight, her FSG was down to 57 again at around 4 AM. Juice was given. Since then, her FSGs were 83, 78 and 93. When I saw her at aound 8 am, she is alert and oriented w/o special complaints. She is eager to go home. Repeat blood work done at 8 am showed glucose level 91, K 4.7, am cortisol 12.6 and insulin 5.2. Allergies/Medications Allergies: Coded Allergies: erythromycin base (HIVES 04/03/16) latex (RASH 04/03/16) morphine (Mild, MAKES HER "ANGRY" 08/17/17) polyethylene glycol 3350 (From MIRALAX) (Mild, MAKES HER "GAG" 08/17/17) Home Med List: Doxycycline Hyclate 100 MG CAPSULE 1 CAP PO BID ANTIBIOTIC (Reported) Furosemide 20 MG TABLET 1 TAB PO DAILY PRN EDEMA (Reported) Levothyroxine Sodium 100 MCG TABLET 1 TAB PO DAILY THYROID (Reported) Magnesium Oxide (Magnesium) 500 MG CAPSULE 1 CAP PO DAILY LEG CRAMPS ( Reported) Metoprolol Tartrate 25 MG TABLET 1 TAB PO BID BP (Reported) Oxycodone HCl/Acetaminophen (Percocet 5-325 MG Tablet) 5 MG-325 MG TABLET 1-2 TAB PO Q4-6 PRN PAIN Potassium Chloride 10 MEQ TABLET.ER 1 TAB PO DAILY SUPPLEMENT (Reported) Rosuvastatin Calcium (Crestor) 10 MG TABLET 1 TAB PO DAILY HYPERLIPIDEMIA ( Reported) Review of Systems Review of Systems Constitutional: Reports: see HPI. Cardiovascular: Denies: chest pain. Respiratory: Denies: short of breath. GI: Denies: abdominal pain. Musculoskeletal: Denies: back pain. Hematologic/Endocrine: Reports: see HPI. 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 Surgical History Surgical History: cholecystectomy, hysterectomy, GASTRIC BYPASS HERNIA REPAIR Psychosocial History Services at Home: None Smoking Status: Former Smoker ETOH Use: denies use Illicit Drug Use: denies illicit drug use Exam & Diagnostic Data Last 24 Hrs of Vital Signs/I&O Vital Signs Date Time Temp Pulse Resp B/P B/P Pulse O2 O2 Flow FiO2 Mean Ox Delivery Rate 02/25 0825 98.7 66 18 125/58 99 Room Air 02/25 0134 97.5 68 18 150/92 99 Room Air 02/24 2251 98.2 66 18 118/70 97 Room Air Intake & Output 02/25 1600 02/25 0800 02/25 0000 Intake Total 0 Output Total 20 Balance -20 0 Intake, Oral 0 Output, Urine 20 Patient 142 lb Weight Physical Exam General Appearance: no apparent distress Neck: normal inspection Respiratory: lungs clear Cardiovascular: regular rate/rhythm Gastrointestinal: soft Extremities: normal inspection, no edema Labs/Jalil Results: Laboratory Tests 02/25 02/25 02/25 02/25 0821 0821 0418 0223 Chemistry Potassium (3.5 - 5.1 mmol/L) 4.7 Glucose (65 - 99 mg/dL) 91 Insulin Level (3.0 - 25.0 mIU/mL) 5.2 C-Peptide Pending Troponin I (< 0.11 ng/ml) 0.03 Cortisol AM Sample (4.46 - 22.7 ug/dL) 12.6 Urines Urine Color (YEL,AMB,STR) YEL Urine Clarity (CLEAR) CLEAR Urine pH (5.0 - 8.0) 6.0 Ur Specific [place] (1.001 - 1.035) 1.010 Urine Protein (NEG,<30 MG/DL) NEG Urine Ketones (NEG) TRACE H Urine Nitrite (NEG) NEG Urine Bilirubin (NEG) NEG Urine Urobilinogen (0.1 - 1.0 EU/dl) 0.2 Ur Leukocyte Esterase (NEG) NEG Ur Microscopic EXAM NOT REQUIRED Urine Hemoglobin (NEG) NEG Urine Glucose (N MG/DL) NEG 02/24 2230 Chemistry Sodium (137 - 145 mmol/L) 143 Potassium (3.5 - 5.1 mmol/L) 3.0 L Chloride (98 - 107 mmol/L) 102 Carbon Dioxide (22 - 30 mmol/L) 28 Anion Gap (5 - 16) 13 BUN (7 - 17 mg/dL) 16 Creatinine (0.5 - 1.0 mg/dL) 0.8 Estimated GFR (>60 ml/min) > 60 BUN/Creatinine Ratio (7 - 25 %) 20.0 Glucose (65 - 99 mg/dL) 115 H Insulin Level (3.0 - 25.0 mIU/mL) 31.7 H Calcium (8.4 - 10.2 mg/dL) 8.9 Magnesium (1.6 - 2.3 mg/dL) 1.8 Total Bilirubin (0.2 - 1.3 mg/dL) 0.4 AST (14 - 36 U/L) 30 ALT (9 - 52 U/L) 28 Alkaline Phosphatase (<127 U/L) 62 Troponin I (< 0.11 ng/ml) < 0.01 Total Protein (6.3 - 8.2 g/dL) 6.0 L Albumin (3.5 - 5.0 g/dL) 3.7 Globulin (1.9 - 4.2 gm/dL) 2.3 Albumin/Globulin Ratio (1.1 - 2.2 %) 1.6 TSH (0.270 - 4.200 uIU/mL) 0.398 Free T4 (0.78 - 2.44 ng/dL) 1.22 Total T3 (0.97 - 1.69 ng/mL) 1.02 Hematology CBC w Diff NO MAN DIFF REQ WBC (4.8 - 10.8 /CUMM) 8.6 RBC (4.20 - 5.40 /CUMM) 4.05 L Hgb (12.0 - 16.0 G/DL) 12.2 Hct (37 - 47 %) 36.6 L MCV (81.0 - 99.0 FL) 90.3 MCH (27.0 - 31.0 PG) 30.1 MCHC (33.0 - 37.0 G/DL) 33.3 RDW (11.5 - 14.5 %) 13.5 Plt Count (130 - 400 /CUMM) 203 MPV (7.4 - 10.4 FL) 8.9 Gran % (42.2 - 75.2 %) 68.4 Lymphocytes % (20.5 - 51.1 %) 23.9 Monocytes % (1.7 - 9.3 %) 4.8 Eosinophils % (0 - 5 %) 2.6 Basophils % (0.0 - 2.0 %) 0.3 Absolute Granulocytes (1.4 - 6.5 /CUMM) 5.9 Absolute Lymphocytes (1.2 - 3.4 /CUMM) 2.1 Absolute Monocytes (0.10 - 0.60 /CUMM) 0.4 Absolute Eosinophils (0.0 - 0.7 /CUMM) 0.2 Absolute Basophils (0.0 - 0.2 /CUMM) 0 Assessment/Plan Assessment/Plan Patient is a 77 years old female who has had hx of hypothyroidism and gastric bypass surgery done in 2002 ( lost 100 pounds) and revised Alan-En -Y Gastric bypass in 2012 ( lost another 30 pounds), was in usual status of health, presented with hypoglycemia of glucose level of 39. In ER, the blood work showed glucose level of 115, Cr 0.8, TSH 0.398, free T4 1.22 and TT3 1.02, Insulin 31.7. Repeat blood work done at 8 am showed glucose level 91, K 4.7, am cortisol 12.6 and insulin 5.2. Hypoglycemia could be due to her previous gastric bypass. Plan: 1. low carbohydrates, protein rich diet; 2. small meals and snack between meals; 3. monitor FSGs x 3 times a day; 4. from endocrine stand point, patient can go home and f/u with me in office after discharge. Consult Acknowledgment - Thank you for your consult request.
== END 2018-02-25 10:51 ==
LOC: ERH 21:59 → ERHI 02-25 01:13
PROVIDERS: Emergency Medicine
DX: E16.2 Hypoglycemia, unspecified (principal); E03.9 Hypothyroidism, unspecified; K21.9 Gastro-esophageal reflux disease without esophagitis; Z98.84 Bariatric surgery status; Z87.891 Personal history of nicotine dependence
CPT/HCPCS: 6090; 74177; 81003; 83525; 93005; 93010; G0378

== ENCOUNTER 2018-03-30 19:50 | Inpatient (IN) | payer OTHER ==
[~2018-03-30] VITALS: Ht 162.6 cm; Wt 66.3 kg
[~2018-03-30 19:50] MED LIST changes: +CRESTOR10 M1 PO; +DOXYCYCLINE HY100 M2 PO; +POTASSIUM CHLO10 ME4 PO
--- NOTE | 2018-03-30 19:54 | ED GI/GU/ABDOMINAL COMPLAINT ---
History of Present Illness General Chief Complaint: Abdominal Pain/Flank Pain Stated Complaint: SUDDEN ONSET ABDOMINAL PAIN Source: patient Exam Limitations: no limitations Vital Signs & Intake/Output Vital Signs & Intake/Output Vital Signs Date Time Temp Pulse Resp B/P B/P Pulse O2 O2 Flow FiO2 Mean Ox Delivery Rate 03/307 98.5 70 18 137/72 97 Room Air 03/30 1953 98.4 72 18 147/67 96 Room Air ED Intake and Output 03/31 0000 03/30 1200 Intake Total 1000 Output Total Balance 1000 Intake, IV 1000 Patient 143 lb Weight Weight Reported by Patient Measurement Method Allergies Coded Allergies: erythromycin base (HIVES 04/03/16) latex (RASH 04/03/16) morphine (Mild, MAKES HER "ANGRY" 08/17/17) polyethylene glycol 3350 (From MIRALAX) (Mild, MAKES HER "GAG" 08/17/17) Reconcile Medications Doxycycline Hyclate 100 MG CAPSULE 1 CAP PO BID ANTIBIOTIC (Reported) Furosemide 20 MG TABLET 1 TAB PO DAILY PRN EDEMA (Reported) Levothyroxine Sodium 100 MCG TABLET 1 TAB PO DAILY THYROID (Reported) Magnesium Oxide (Magnesium) 500 MG CAPSULE 1 CAP PO DAILY LEG CRAMPS ( Reported) Metoprolol Tartrate 25 MG TABLET 1 TAB PO BID BP (Reported) Oxycodone HCl/Acetaminophen (Percocet 5-325 MG Tablet) 5 MG-325 MG TABLET 1-2 TAB PO Q4-6 PRN PAIN Potassium Chloride 10 MEQ TABLET.ER 1 TAB PO DAILY SUPPLEMENT (Reported) Rosuvastatin Calcium (Crestor) 10 MG TABLET 1 TAB PO DAILY HYPERLIPIDEMIA ( Reported) Triage Nurses Notes Reviewed? yes ? n Is pt currently ? No Timing: single episode today Quality/Severity: cramping Location: epigastric Radiation: no radiation Modifying Factors: Worsens With: vomiting. Associated Symptoms: abdominal pain, nausea/vomiting HPI: 77 yo woman h/o gastric bypass w/ revision, presents with 1-2 hours sudden onset of mid epigastric abdominal pain with nausea and vomiting. The medics shares, "She was screaming in pain the whole way here and stopped just before we got here." No fever, chills, dysuria, diarrhea. Past History Travel History Traveled to [place] past 21 day No Medical History Any Pertinent Medical History? see below for history Neurological: NONE EENT: NONE Cardiovascular: hypertension, hyperlipidemia Respiratory: pneumonia Gastrointestinal: ACID REFLUX Hepatic: NONE Renal: NONE Musculoskeletal: L WRIST FX Psychiatric: NONE Endocrine: hypothyroidism Blood Disorders: NONE Cancer(s): NONE ENDOSCOPY NURSE/Reproductive: NONE History of MRSA: No History of VRE: No History of CDIFF: No Surgical History Surgical History: cholecystectomy, hysterectomy, GASTRIC BYPASS HERNIA REPAIR Psychosocial History Who do you live with Significant Other Services at Home None What is your primary language Ugandan Tobacco Use: Quit >30 days ago Family History Hx Contributory? No Review of Systems Review of Systems Constitutional: Reports: no symptoms. EENTM: Reports: no symptoms. Respiratory: Reports: no symptoms. Cardiovascular: Reports: no symptoms. GI: Reports: no symptoms. Genitourinary: Reports: no symptoms. Musculoskeletal: Reports: no symptoms. Skin: Reports: no symptoms. Neurological/Psychological: Reports: no symptoms. Hematologic/Endocrine: Reports: no symptoms. Immunologic/Allergic: Reports: no symptoms. All Other Systems: Reviewed and Negative Physical Exam Physical Exam Gastrointestinal: see below Comments: Review of Systems - except as otherwise noted in HPI Physical Exam Physical Exam General Appearance: well developed/nourished, no apparent distress Head: atraumatic, normal appearance Eyes: Bilateral: normal appearance. Ears, Nose, Throat: normal pharynx, normal ENT inspection Neck: normal inspection, supple, full range of motion Respiratory: normal breath sounds, chest non-tender, no respiratory distress, quiet respiration, lungs clear Cardiovascular: regular rate/rhythm Gastrointestinal: scant bowel sounds, mid epigastric tenderness without rebound or guarding. no ruq tenderness... mild distension Back: normal inspection, normal range of motion Extremities: normal inspection, normal capillary refill, normal range of motion, no edema Neurologic/Psych: no motor/sensory deficits, awake, alert, oriented x 3 Skin: intact, normal color, warm/dry Core Measures ACS in differential dx? No Sepsis Present: No Sepsis Focused Exam Completed? No Progress Differential Diagnosis: bowel obstruction, cholecystitis, diverticulitis, gastritis, hepatitis Plan of Care: Orders Procedure Date/time Status Admit to inpatient 03/30 3329 Active TROPONIN LEVEL 03/30 1955 Complete LIPASE 03/30 1955 Complete HEPATIC FUNCTION PANEL 03/30 1955 Complete CBC WITHOUT DIFFERENTIAL 03/30 1955 Complete BASIC METABOLIC PANEL 03/30 1955 Complete AMYLASE 03/30 1955 Complete EKG 03/30 1955 Active Laboratory Tests 03/30/18 2004: Anion Gap 17 H, Estimated GFR > 60, BUN/Creatinine Ratio 21.1, Glucose 118 H, Calcium 10.1, Total Bilirubin 0.4, Direct Bilirubin 0.3, AST 29, ALT 30, Alkaline Phosphatase 77, Troponin I < 0.01, Total Protein 6.8, Albumin 4.4, Amylase 75, Lipase 85, CBC w Diff NO MAN DIFF REQ, RBC 4.55, MCV 89.8, MCH 30.0, MCHC 33.4, RDW 13.6, MPV 9.4, Gran % 65.4, Lymphocytes % 26.3, Monocytes % 5.7, Eosinophils % 1.9, Basophils % 0.7, Absolute Granulocytes 4.7, Absolute Lymphocytes 1.9, Absolute Monocytes 0.4, Absolute Eosinophils 0.1, Absolute Basophils 0 Diagnostic Imaging: Viewed by Me: CT Scan. Discussed w/RAD: CT Scan. Radiology Impression: PATIENT: JEFF CANTU PRESENT AGE: 77 PATIENT ACCOUNT NO: [id number] : 42 LOCATION: [facility] ORDERING PHYSICIAN: Kye Bucio MD SERVICE DATE: 03/30/18 EXAM TYPE: CAT - CT ABD & PELVIS W ORAL & IV CO EXAMINATION: CT ABDOMEN AND PELVIS WITH CONTRAST CLINICAL INFORMATION: Bariatric protocol. Question obstruction. COMPARISON: 02/24/2018 TECHNIQUE: Multidetector volumetric imaging was performed of the abdomen and pelvis following IV administration of 95 mL of Optiray 320 intravenous contrast. Sagittal and coronal reformatted images were obtained on the technologist's workstation. DLP: 293 mGy-cm FINDINGS: LUNG BASES: The lung bases are clear. The visualized cardiac structures are unremarkable. There is a dilated distal esophagus. LIVER, GALLBLADDER, AND BILIARY TREE: The liver is normal in size, shape, and attenuation. There is no focal hepatic lesion seen. There is diffuse intrahepatic biliary ductal dilatation which is similar to prior.. The patient is status post cholecystectomy. Stable prominence of the common bile duct with no filling defects seen. PANCREAS: Unremarkable. SPLEEN: Unremarkable. ADRENAL GLANDS: Unremarkable. KIDNEYS AND URETERS: The kidneys are normal in size, shape, and attenuation. No hydronephrosis, hydroureter, or calculi seen. No perinephric stranding. BLADDER: Unremarkable. GASTROINTESTINAL TRACT: There are postsurgical changes status post Alan-en-Y gastric bypass. There is prominent dilatation of the proximal jejunum extending from the anastomosis. Transition point is visualized in the midabdomen, series 2 image 45 and series 602 image 55. This is proximal to the jejunojejunal anastomosis. The distal small bowel is decompressed. Scattered stool in the colon. Small amount of free fluid in the abdomen. ABDOMINAL WALL: No significant hernia is seen. Stranding noted in the subcutaneous tissues in the left anterior abdominal wall, new from previous CT. LYMPH NODES: Normal. VASCULAR: Normal caliber aorta. Moderate atherosclerotic calcifications. PELVIC VISCERA: Uterus is not seen. No adnexal mass. OSSEOUS STRUCTURES: No acute or suspicious osseous abnormality. Multilevel degenerative changes of the spine. IMPRESSION: Small bowel obstruction with transition point in the midabdomen as detailed above. This appears fairly high-grade as there is decompression of the distal small bowel and a small amount of free fluid in the abdomen. DICTATED BY: Kelechi Zhu MD DATE/TIME DICTATED:03/30/182251 IRONER MACHINE:LON DATE/TIME TRANSCRIBED:03/30/182251 CONFIDENTIAL, DO NOT COPY WITHOUT APPROPRIATE AUTHORIZATION. <Electronically signed in Other Vendor System> SIGNED BY: Audra DUNBAR,Kelechi 03/30/18 7941, PATIENT: JEFF CANTU PRESENT AGE: 77 PATIENT ACCOUNT NO: [id number] : 42 LOCATION: [facility] ORDERING PHYSICIAN: Kye Bucio MD SERVICE DATE: 03/30/18 EXAM TYPE: RAD - XRY-PORTABLE CHEST XRAY EXAMINATION: XR PORTABLE CHEST CLINICAL INFORMATION: Vomiting. Dyspnea. COMPARISON: Chest x-ray of 04/03/[address] of 02/24/2018. TECHNIQUE: Portable frontal view of the chest was obtained. FINDINGS: The cardiomediastinal silhouette is stable with mild cardiomegaly. The lungs are normally and symmetrically expanded. No focal consolidation, changes of congestion or pleural effusions. No pneumothorax. No evidence of pneumomediastinum. Aortic arch calcifications are noted. No acute osseous abnormality. Degenerative changes are seen at the bilateral acromioclavicular joints. IMPRESSION: No acute pulmonary process. DICTATED BY: Diego DUNBAR,Anal DATE /TIME DICTATED:03/30/182152 IRONER MACHINE:LON DATE/TIME TRANSCRIBED: 03/30/182152 CONFIDENTIAL, DO NOT COPY WITHOUT APPROPRIATE AUTHORIZATION. < Electronically signed in Other Vendor System> SIGNED BY: Danielle Cortez MD 05/10 CXR Impression: PATIENT: JEFF CANTU PRESENT AGE: 77 PATIENT ACCOUNT NO: [id number] : 42 LOCATION: [facility] ORDERING PHYSICIAN: Kye Bucio MD SERVICE DATE: 03/30/18 EXAM TYPE: RAD - XRY- PORTABLE CHEST XRAY EXAMINATION: XR PORTABLE CHEST CLINICAL INFORMATION: Vomiting. Dyspnea. COMPARISON: Chest x-ray of 04/03/[address] of 2017. TECHNIQUE: Portable frontal view of the chest was obtained. FINDINGS: The cardiomediastinal silhouette is stable with mild cardiomegaly. The lungs are normally and symmetrically expanded. No focal consolidation, changes of congestion or pleural effusions. No pneumothorax. No evidence of pneumomediastinum. Aortic arch calcifications are noted. No acute osseous abnormality. Degenerative changes are seen at the bilateral acromioclavicular joints. IMPRESSION: No acute pulmonary process. DICTATED BY: Danielle Cortez MD DATE /TIME DICTATED:03/30/182152 IRONER MACHINE:LON DATE/TIME TRANSCRIBED: 03/30/182152 CONFIDENTIAL, DO NOT COPY WITHOUT APPROPRIATE AUTHORIZATION. < Electronically signed in Other Vendor System> SIGNED BY: Danielle Cortez MD 05/10 Initial ED EKG: sinus, biphasic p in v1, no acute changes Departure Departure Disposition: STILL A PATIENT Condition: Stable Clinical Impression Primary Impression: Small bowel obstruction Referrals: Edwin Thompson MD (PCP/Family) Departure Forms: Customer Survey General Discharge Information Admission Note Spoke With: Mane DUNBAR,Volodymyr Mccollum Documentation of Exam: Documentation of any treatments & extenuating circumstances including Concerns Regarding Discharge (functional status, medication knowledge or non-compliance, living conditions, etc.) that warrant an admission rather than observation: pt with vomiting, ct scan consistent with small bowel obstruction... pt merits bowel rest, consider ng tube... iv fluids.
[2018-03-30 20:19] LABS: ABSOLUTE BASOPHIL COUNT 0 /CUMM (0.0-0.2); ABSOLUTE EOSINOPHIL COUNT 0.1 /CUMM (0.0-0.7); ABSOLUTE GRANULOCYTE CT 4.7 /CUMM (1.4-6.5); ABSOLUTE LYMPH COUNT 1.9 /CUMM (1.2-3.4); ABSOLUTE MONOCYTE COUNT 0.4 /CUMM (0.10-0.60); BASOPHIL % 0.7 % (0.0-2.0); EOSINOPHIL % 1.9 % (0-5); GRANULOCYTE % 65.4 % (42.2-75.2); HEMATOCRIT 40.8 % (37-47); MEAN CORPUSCULAR HGB CONC 33.4 G/DL (33.0-37.0); MEAN CORPUSCULAR VOLUME 89.8 FL (81.0-99.0); MEAN PLATELET VOLUME 9.4 FL (7.4-10.4); PLATELET COUNT 272 /CUMM (130-400); RBC DISTRIBUTION WIDTH 13.6 % (11.5-14.5); RED BLOOD CELL CT 4.55 /CUMM (4.20-5.40); WHITE BLOOD CELL COUNT 7.2 /CUMM (4.8-10.8)
--- NOTE | 2018-03-30 21:59 | RADIOLOGY REPORT ---
EXAMINATION: XR PORTABLE CHEST CLINICAL INFORMATION: Vomiting. Dyspnea. COMPARISON: Chest x-ray of 04/03/[address] of 02/24/2018. TECHNIQUE: Portable frontal view of the chest was obtained. FINDINGS: The cardiomediastinal silhouette is stable with mild cardiomegaly. The lungs are normally and symmetrically expanded. No focal consolidation, changes of congestion or pleural effusions. No pneumothorax. No evidence of pneumomediastinum. Aortic arch calcifications are noted. No acute osseous abnormality. Degenerative changes are seen at the bilateral acromioclavicular joints. IMPRESSION: No acute pulmonary process.
--- NOTE | 2018-03-30 23:04 | CT SCAN REPORT ---
EXAMINATION: CT ABDOMEN AND PELVIS WITH CONTRAST CLINICAL INFORMATION: Bariatric protocol. Question obstruction. COMPARISON: 02/24/2018 TECHNIQUE: Multidetector volumetric imaging was performed of the abdomen and pelvis following IV administration of 95 mL of Optiray 320 intravenous contrast. Sagittal and coronal reformatted images were obtained on the technologist's workstation. DLP: 293 mGy-cm FINDINGS: LUNG BASES: The lung bases are clear. The visualized cardiac structures are unremarkable. There is a dilated distal esophagus. LIVER, GALLBLADDER, AND BILIARY TREE: The liver is normal in size, shape, and attenuation. There is no focal hepatic lesion seen. There is diffuse intrahepatic biliary ductal dilatation which is similar to prior.. The patient is status post cholecystectomy. Stable prominence of the common bile duct with no filling defects seen. PANCREAS: Unremarkable. SPLEEN: Unremarkable. ADRENAL GLANDS: Unremarkable. KIDNEYS AND URETERS: The kidneys are normal in size, shape, and attenuation. No hydronephrosis, hydroureter, or calculi seen. No perinephric stranding. BLADDER: Unremarkable. GASTROINTESTINAL TRACT: There are postsurgical changes status post Alan-en-Y gastric bypass. There is prominent dilatation of the proximal jejunum extending from the anastomosis. Transition point is visualized in the midabdomen, series 2 image 45 and series 602 image 55. This is proximal to the jejunojejunal anastomosis. The distal small bowel is decompressed. Scattered stool in the colon. Small amount of free fluid in the abdomen. ABDOMINAL WALL: No significant hernia is seen. Stranding noted in the subcutaneous tissues in the left anterior abdominal wall, new from previous CT. LYMPH NODES: Normal. VASCULAR: Normal caliber aorta. Moderate atherosclerotic calcifications. PELVIC VISCERA: Uterus is not seen. No adnexal mass. OSSEOUS STRUCTURES: No acute or suspicious osseous abnormality. Multilevel degenerative changes of the spine. IMPRESSION: Small bowel obstruction with transition point in the midabdomen as detailed above. This appears fairly high-grade as there is decompression of the distal small bowel and a small amount of free fluid in the abdomen.
--- NOTE | 2018-03-30 23:58 | History & Physical Pre-Op ---
Jennifer Berman 03/30/18 4988: General Information and HPI History of Present Illness: 77yoF presents to ED with abd pain that began around 5pm this evening. She was feeling normal earlier, moved her bowels x2 this am, and attended bridal shower where she ate full meal around 2pm. She returned home and had sudden onset of abdominal crampy pain accompanied with n/v. She is sp rny gastric bypass 2006 with revision 2014 ([facility]). No hx SBO. Feeling bloated, feels like she needs to belch. feeling better now after getting pain and nausea meds. Denies sob, cp, fevers, sick contacts. Allergies/Medications Allergies: Coded Allergies: erythromycin base (HIVES 04/03/16) latex (RASH 04/03/16) morphine (Mild, MAKES HER "ANGRY" 08/17/17) polyethylene glycol 3350 (From MIRALAX) (Mild, MAKES HER "GAG" 08/17/17) Past History Medical History Cardiovascular: hypertension, hyperlipidemia Gastrointestinal: GERD Musculoskeletal: L WRIST FX Endocrine: hypothyroidism History of MRSA: No History of VRE: No History of CDIFF: No Surgical History Pertinent Surgical History: cholecystectomy, hysterectomy, GASTRIC BYPASS 2007, revision 2015 Past Family/Social History Psychosocial History Where Do You Live? Home Who Do You Live With? spouse Services at Home None Smoking Status: Former Smoker (quit 25yr ago) ETOH Use: occasional use Illicit Drug Use: denies illicit drug use Functional Ability Ambulation: independent Exam & Diagnostic Data Last 24 Hrs of Vital Signs/I&O Vital Signs Date Time Temp Pulse Resp B/P B/P Pulse O2 O2 Flow FiO2 Mean Ox Delivery Rate 03/30 2257 98.5 70 18 137/72 97 Room Air 03/30 1953 98.4 72 18 147/67 96 Room Air Intake & Output 03/31 0800 03/31 0000 03/30 1600 Intake Total 1000 Output Total Balance 1000 Intake, IV 1000 Patient 143 lb Weight Weight Reported by Patient Measurement Method Physical Exam: gen- difficultly finding comfortable position, better after meds card-s1s2 pulm- no audible wheeze abd- soft, ttp bl upper quadrants and epigastric region, no r/g ext- calves soft nt Last 24 Hrs of Labs/Jalil: Laboratory Tests 03/30/18 2004: Anion Gap 17 H, Estimated GFR > 60, BUN/Creatinine Ratio 21.1, Glucose 118 H, Calcium 10.1, Total Bilirubin 0.4, Direct Bilirubin 0.3, AST 29, ALT 30, Alkaline Phosphatase 77, Troponin I < 0.01, Total Protein 6.8, Albumin 4.4, Amylase 75, Lipase 85, CBC w Diff NO MAN DIFF REQ, RBC 4.55, MCV 89.8, MCH 30.0, MCHC 33.4, RDW 13.6, MPV 9.4, Gran % 65.4, Lymphocytes % 26.3, Monocytes % 5.7, Eosinophils % 1.9, Basophils % 0.7, Absolute Granulocytes 4.7, Absolute Lymphocytes 1.9, Absolute Monocytes 0.4, Absolute Eosinophils 0.1, Absolute Basophils 0 Diagnostic Data Other Results SERVICE DATE: 03/30/18 EXAM TYPE: CAT - CT ABD & PELVIS W ORAL & IV CO EXAMINATION: CT ABDOMEN AND PELVIS WITH CONTRAST CLINICAL INFORMATION: Bariatric protocol. Question obstruction. COMPARISON: 02/24/2018 TECHNIQUE: Multidetector volumetric imaging was performed of the abdomen and pelvis following IV administration of 95 mL of Optiray 320 intravenous contrast. Sagittal and coronal reformatted images were obtained on the technologist's workstation. DLP: 293 mGy-cm FINDINGS: LUNG BASES: The lung bases are clear. The visualized cardiac structures are unremarkable. There is a dilated distal esophagus. LIVER, GALLBLADDER, AND BILIARY TREE: The liver is normal in size, shape, and attenuation. There is no focal hepatic lesion seen. There is diffuse intrahepatic biliary ductal dilatation which is similar to prior.. The patient is status post cholecystectomy. Stable prominence of the common bile duct with no filling defects seen. PANCREAS: Unremarkable. SPLEEN: Unremarkable. ADRENAL GLANDS: Unremarkable. KIDNEYS AND URETERS: The kidneys are normal in size, shape, and attenuation. No hydronephrosis, hydroureter, or calculi seen. No perinephric stranding. BLADDER: Unremarkable. GASTROINTESTINAL TRACT: There are postsurgical changes status post Alan-en-Y gastric bypass. There is prominent dilatation of the proximal jejunum extending from the anastomosis. Transition point is visualized in the midabdomen, series 2 image 45 and series 602 image 55. This is proximal to the jejunojejunal anastomosis. The distal small bowel is decompressed. Scattered stool in the colon. Small amount of free fluid in the abdomen. ABDOMINAL WALL: No significant hernia is seen. Stranding noted in the subcutaneous tissues in the left anterior abdominal wall, new from previous CT. LYMPH NODES: Normal. VASCULAR: Normal caliber aorta. Moderate atherosclerotic calcifications. PELVIC VISCERA: Uterus is not seen. No adnexal mass. OSSEOUS STRUCTURES: No acute or suspicious osseous abnormality. Multilevel degenerative changes of the spine. IMPRESSION: Small bowel obstruction with transition point in the midabdomen as detailed above. This appears fairly high-grade as there is decompression of the distal small bowel and a small amount of free fluid in the abdomen. Assessment/Plan Assessment/Plan: A- 77F with SBO likely due to adhesions from bariatric surgery, with abdominal pain though vs and labs stable P- observation status npo ivf iv meds no ngt as s/p gastic bypass prn apin meds prn antiemetics home meds serial abd exams d/w dr gilliam As Ranked By This Provider Problem List: 1. Small bowel obstruction Volodymyr Gilliam MD 03/31/18 0709: General Information and HPI Allergies/Medications Home Med list Aspirin (Ecotrin*) 325 MG TABLET.DR 1 TAB PO DAILY HEART HEALTH (Reported) Doxycycline Hyclate 100 MG CAPSULE 1 CAP PO BID ANTIBIOTIC (Reported) Furosemide 20 MG TABLET 3 TAB PO DAILY PRN EDEMA (Reported) Levothyroxine Sodium 100 MCG TABLET 1 TAB PO DAILY THYROID (Reported) Magnesium Oxide (Magnesium) 500 MG CAPSULE 1 CAP PO DAILY LEG CRAMPS ( Reported) Metoprolol Tartrate 25 MG TABLET 1 TAB PO BID BP (Reported) Oxycodone HCl/Acetaminophen (Percocet 5-325 MG Tablet) 5 MG-325 MG TABLET 1-2 TAB PO Q4-6 PRN PAIN Potassium Chloride 10 MEQ TABLET.ER 1 TAB PO DAILY SUPPLEMENT (Reported) Rosuvastatin Calcium (Crestor) 10 MG TABLET 1 TAB PO DAILY HYPERLIPIDEMIA ( Reported) Past History Surgical History Pertinent Surgical History: knee replacement (bilateral)
--- NOTE | 2018-03-31 00:38 | Admission Core Measures ---
Acute Coronary Syndrome (CM) ACS Core Measures Acute Coronary Syndrome Diagnosis No Congestive Heart Failure (NEW) CHF Core Measures Congestive Heart Failure Diagnosis No Cerebrovascular Accident CVA Core Measures CVA/TIA Diagnosis No Venous Thromboembolism VTE Core Abiodun (View Protocol) VTE Risk Factors Surgery No Mechanical VTE Prophylaxis d/t N/A MechProphylax Ordered No VTE Pharm Prophylaxis d/t NA PharmProphylax ordered Problem List As ranked by this Provider includes Assessment & Plan 1. Small bowel obstruction HOME MEDS Home Med List Doxycycline Hyclate 100 MG CAPSULE 1 CAP PO BID ANTIBIOTIC (Reported) Furosemide 20 MG TABLET 1 TAB PO DAILY PRN EDEMA (Reported) Levothyroxine Sodium 100 MCG TABLET 1 TAB PO DAILY THYROID (Reported) Magnesium Oxide (Magnesium) 500 MG CAPSULE 1 CAP PO DAILY LEG CRAMPS ( Reported) Metoprolol Tartrate 25 MG TABLET 1 TAB PO BID BP (Reported) Oxycodone HCl/Acetaminophen (Percocet 5-325 MG Tablet) 5 MG-325 MG TABLET 1-2 TAB PO Q4-6 PRN PAIN Potassium Chloride 10 MEQ TABLET.ER 1 TAB PO DAILY SUPPLEMENT (Reported) Rosuvastatin Calcium (Crestor) 10 MG TABLET 1 TAB PO DAILY HYPERLIPIDEMIA ( Reported)
[2018-03-31] MEDS ORDERED: ASPIRIN EC325 M2 PO (01:53)
[2018-03-31 03:02] VITALS: BP 140/72
[2018-03-31 06:40] VITALS: BP 150/80
--- NOTE | 2018-03-31 08:06 | PN- General Surgery ---
See Addendum Subjective Subjective: Pt very difficult to arose after getting 0.5mg of IV dilaudid and phenergan for pain and nausea recently. will not answer questions Objective Vital Signs and I&Os Vital Signs Date Time Temp Pulse Resp B/P B/P Pulse O2 O2 Flow FiO2 Mean Ox Delivery Rate 03/31 640 99.3 87 20 150/80 97 Room Air 03/31 0302 99.2 85 20 140/72 93 Room Air 03/31 0112 98.6 85 18 134/67 95 Room Air 03/30 2257 98.5 70 18 137/72 97 Room Air 03/30 1953 98.4 72 18 147/67 96 Room Air Intake & Output 03/31 1600 03/31 0000 03/30 1600 03/30 0000 Intake Total 1000 Output Total Balance 1000 Intake, IV 1000 Patient 146 lb 143 lb Weight Weight Bed scale Reported by Patient Measurement Method Physical Exam: gen- very sleepy, NAD resp- clear cardiac- RRR abd- ND, no bowel sounds appreciated, tender in upper abdomen with some gaurding , no rebound Current Medications: Current Medications Sig/Dawit Start time Last Medication Dose Route Stop Time Status Admin Acetaminophen 1,000 MG Q6P PRN 03/31 30 AC N/A 1 UNIT IV Dextrose/Sodium 1,000 ML .Q8H 03/31 30 03/31 Chloride IV 0234 Famotidine 20 MG DAILY 03/31 900 IV Heparin Sodium 5,000 UNIT Q8 03/31 600 03/31 (Porcine) SC 0535 Hydromorphone HCl 1 MG Q2-3 HRS NEEDED.. 03/31 30 DC IV Hydromorphone HCl 0.5 MG Q2-3 HRS NEEDED.. 03/31 0030 AC 03/31 IV 0534 Hydromorphone HCl 1 MG ONCE ONE 03/31 15 DC 03/31 IV 03/31 0016 0017 Hydromorphone HCl 0 .STK-MED ONE 03/31 14 DC .ROUTE Hydromorphone HCl 0 .STK-MED ONE 03/30 2004 DC .ROUTE Hydromorphone HCl 1 MG ONCE ONE 03/30 2000 DC 03/30 IV 03/30 Levothyroxine Sodium 0.1 MG DAILY AC 03/31 700 AC 03/31 PO 0704 Metoprolol Tartrate 25 MG BID 03/31 900 AC PO Ondansetron HCl 4 MG Q6P PRN 03/31 0030 AC 03/31 IV 0230 Pantoprazole Sodium 0 .STK-MED ONE 03/30 2010 DC IV Pantoprazole Sodium 40 MG ONCE ONE 03/30 2000 DC 03/30 IV 03/30 Promethazine HCl 25 MG Q6-PRN PRN 03/31 003 AC 03/31 IV 04/07 0029 0527 Promethazine HCl 0 .STK-MED ONE 03/30 2010 DC .ROUTE Promethazine HCl 12.5 MG ONCE ONE 03/30 2000 DC 03/30 IV 03/30 Sodium Chloride 1,000 ML BOLUS ONE 03/30 2000 DC 03/30 IV 03/30 Results Last 48 Hours of Labs: Laboratory Tests 03/31 03/30 0739 2004 Chemistry Sodium (137 - 145 mmol/L) Pending 143 Potassium (3.5 - 5.1 mmol/L) Pending 3.8 Chloride (98 - 107 mmol/L) Pending 105 Carbon Dioxide (22 - 30 mmol/L) Pending 21 L Anion Gap (5 - 16) Pending 17 H BUN (7 - 17 mg/dL) Pending 19 H Creatinine (0.5 - 1.0 mg/dL) Pending 0.9 Estimated GFR (>60 ml/min) > 60 BUN/Creatinine Ratio (7 - 25 %) Pending 21.1 Glucose (65 - 99 mg/dL) 118 H Calcium (8.4 - 10.2 mg/dL) 10.1 Total Bilirubin (0.2 - 1.3 mg/dL) 0.4 Direct Bilirubin (< 0.4 mg/dL) 0.3 AST (14 - 36 U/L) 29 ALT (9 - 52 U/L) 30 Alkaline Phosphatase (<127 U/L) 77 Troponin I (< 0.11 ng/ml) < 0.01 Total Protein (6.3 - 8.2 g/dL) 6.8 Albumin (3.5 - 5.0 g/dL) 4.4 Amylase (30 - 110 U/L) 75 Lipase (23 - 300 U/L) 85 Hematology CBC w Diff Pending NO MAN DIFF REQ WBC (4.8 - 10.8 /CUMM) Pending 7.2 RBC (4.20 - 5.40 /CUMM) Pending 4.55 Hgb (12.0 - 16.0 G/DL) Pending 13.6 Hct (37 - 47 %) Pending 40.8 MCV (81.0 - 99.0 FL) Pending 89.8 MCH (27.0 - 31.0 PG) Pending 30.0 MCHC (33.0 - 37.0 G/DL) Pending 33.4 RDW (11.5 - 14.5 %) Pending 13.6 Plt Count (130 - 400 /CUMM) Pending 272 MPV (7.4 - 10.4 FL) Pending 9.4 Gran % (42.2 - 75.2 %) 65.4 Lymphocytes % (20.5 - 51.1 %) 26.3 Monocytes % (1.7 - 9.3 %) 5.7 Eosinophils % (0 - 5 %) 1.9 Basophils % (0.0 - 2.0 %) 0.7 Absolute Granulocytes (1.4 - 6.5 /CUMM) 4.7 Absolute Lymphocytes (1.2 - 3.4 /CUMM) 1.9 Absolute Monocytes (0.10 - 0.60 /CUMM) 0.4 Absolute Eosinophils (0.0 - 0.7 /CUMM) 0.1 Absolute Basophils (0.0 - 0.2 /CUMM) 0 Assessment/Plan Assessment/Plan 77yo F with history of gastric bypass now here with first SBO. Pt appears to be more comfortable but sedated from pain meds. Conservative management with bowel rest. No NGT as pt has had RNY gastric bypass and bypass revision in 2014. Awaitng return of bowel function. Cont NPO Hydration via IVF Will switch IV pain meds to low dose morphine encourage ambulation FU AM labs dvt ppx- HSQ and alps will discuss with attending Core Measures Venous Thromboembolism VTE Risk Factors Surgery No Mechanical VTE Prophylaxis d/t N/A MechProphylax Ordered No VTE Pharm Prophylaxis d/t NA PharmProphylax ordered
[2018-03-31 10:01] LABS: ABSOLUTE BASOPHIL COUNT 0 /CUMM (0.0-0.2); ABSOLUTE EOSINOPHIL COUNT 0 /CUMM (0.0-0.7); ABSOLUTE GRANULOCYTE CT 8.1 /CUMM (1.4-6.5); ABSOLUTE LYMPH COUNT 1.1 /CUMM (1.2-3.4); ABSOLUTE MONOCYTE COUNT 0.6 /CUMM (0.10-0.60); BASOPHIL % 0.3 % (0.0-2.0); EOSINOPHIL % 0.1 % (0-5); GRANULOCYTE % 82.3 % (42.2-75.2); HEMATOCRIT 36.2 % (37-47); MEAN CORPUSCULAR HGB 30.1 PG (27.0-31.0); MEAN CORPUSCULAR HGB CONC 33.1 G/DL (33.0-37.0); MEAN CORPUSCULAR VOLUME 91.1 FL (81.0-99.0); PLATELET COUNT 209 /CUMM (130-400); RBC DISTRIBUTION WIDTH 13.9 % (11.5-14.5); RED BLOOD CELL CT 3.97 /CUMM (4.20-5.40); WHITE BLOOD CELL COUNT 9.9 /CUMM (4.8-10.8)
[2018-03-31 13:53] VITALS: BP 120/80
--- NOTE | 2018-03-31 21:25 | Operative Report ---
Operative/Inv Procedure Report Surgery Date: 03/31/18 Name of Procedure: Laparoscopic lysis of adhesions Pre-Operative Diagnosis: Intestinal obstruction Post-Operative Diagnosis: Same Estimated Blood Loss: less than 50ml Surgeon/Mainframe Applications Developer: Mane DUNBAR,Volodymyr Mccollum/Sunitha CARPENTER Anesthesia: general endotracheal tube Specimens: None Operative Indication: 77-year-old woman with severe abdominal pain related to intestinal obstruction. She had severe Progression of her disease over the past 12 hours and there is concern about internal hernia related to gastrointestinal bypass. She presents for emergent exploration. Operative/Procedure Note Note: After consent she is brought to the operating room laid supine. Gen. anesthesia was obtained and her abdomen was prepped and draped. Skin the epigastric region was after local anesthesia and a transverse incision made sharply. We came down to fascia bluntly and grasped with Chidi's. A fasciotomy was graded sharply and stay sutures placed. A blunt Howard port was placed. Pneumoperitoneum was achieved. 2, 5 mm ports were placed in the suprapubic region and left lower quadrant after local anesthesia was instilled under direct vision the camera. There was an adhesive band of omentum to the left lower quadrant. It was taken down with cautery. It was unclear at this point if that was the adhesive band causing obstruction. There was dilated Alan limb and the vast majority of small bowel was decompressed distally. The transition point was not seen. Began by running the small bowel from the terminal ileum proximally. Came to point where small bowel was diving below the mesentery. We then came back in the other side and it appeared that there was a pinched off area that may have been related to the adhesive band. Dissection of that band off of the small bowel was then carried forth with sharp dissection. However that this did not completely relieve the obstruction. There were multiple loops of small bowel adhesed to the jejunojejunostomy. I placed another port, 5 mm, in the right lower quadrant. I then went to the other side and dissected these 2 loops of small bowel off of the jejunojejunostomy. This was performed with sharp dissection. At the conclusion of the operation we ran the bowel from the Alan limb distally. Intestine appeared to be straightened out without any evidence of internal hernia. Within remove the ports. The fascia was closed with 0 Vicryl suture. Skin incisions closed with 4-0 Vicryl. Steri-Strips and sterile dressing applied. Sponge and needle counts are correct CC: Donna DUNBAR,Edwin
--- NOTE | 2018-03-31 22:14 | PN- General Surgery ---
Subjective Subjective: Post op check Awake, no specific complaints post op Denies nausea, pain is tolerable Objective Vital Signs and I&Os Vital Signs Date Time Temp Pulse Resp B/P B/P Pulse O2 O2 Flow FiO2 Mean Ox Delivery Rate 03/31 1353 97.0 72 20 120/80 94 Room Air 03/31 0953 87 150/80 03/31 0800 Room Air 03/31 0640 99.3 87 20 150/80 97 Room Air 03/31 0302 99.2 85 20 140/72 93 Room Air 03/31 0112 98.6 85 18 134/67 95 Room Air 03/30 2257 98.5 70 18 137/72 97 Room Air Intake & Output 03/31 1600 03/31 0803/31 0000 03/30 1600 03/30 0000 Intake Total 7539 481 1261 Output Total 400 Balance 441 981 0158 Intake, IV 5279 389 5109 Intake, Oral 50 0 Number 0 Bowel Movements Output, Urine 400 Patient 146 lb 143 lb Weight Weight Bed scale Reported by Patient Measurement Method Physical Exam: vss, afebrile General: alert and oriented times three Chest; clear anteriorly bilaterally Abd: softly distended, positive bs, crepitus from sc air Wds: dressed, dry Ext: warm, no edema Assessment/Plan Assessment/Plan 77yo female s/p lap exploratory/florinda keep npo overnight will reassess in am for diet carrizales overnight pain management zofran/phenergan as needed hep sc for dvt ppx Core Measures Venous Thromboembolism VTE Risk Factors Surgery No Mechanical VTE Prophylaxis d/t N/A MechProphylax Ordered No VTE Pharm Prophylaxis d/t NA PharmProphylax ordered
[2018-04-01 06:55] VITALS: BP 112/70
[2018-04-01 08:32] LABS: ABSOLUTE BASOPHIL COUNT 0 /CUMM (0.0-0.2); ABSOLUTE EOSINOPHIL COUNT 0 /CUMM (0.0-0.7); ABSOLUTE GRANULOCYTE CT 9.3 /CUMM (1.4-6.5); ABSOLUTE LYMPH COUNT 0.7 /CUMM (1.2-3.4); ABSOLUTE MONOCYTE COUNT 0.5 /CUMM (0.10-0.60); BASOPHIL % 0.1 % (0.0-2.0); EOSINOPHIL % 0 % (0-5); GRANULOCYTE % 88.2 % (42.2-75.2); MEAN CORPUSCULAR HGB 29.9 PG (27.0-31.0); MEAN CORPUSCULAR HGB CONC 33.1 G/DL (33.0-37.0); MEAN CORPUSCULAR VOLUME 90.3 FL (81.0-99.0); MEAN PLATELET VOLUME 10.3 FL (7.4-10.4); PLATELET COUNT 161 /CUMM (130-400); RBC DISTRIBUTION WIDTH 13.6 % (11.5-14.5); RED BLOOD CELL CT 3.87 /CUMM (4.20-5.40)
--- NOTE | 2018-04-01 08:56 | PN- General Surgery ---
Surgical Brief Attending Note Brief Attending Note: recovering well. preop pain resolved. hungry. no bowel function. ok to start clears, d/c carrizales and ambulate.
[2018-04-01 09:12] LABS: WHITE BLOOD CELL COUNT 10.6 /CUMM (4.8-10.8)
[2018-04-01 14:09] VITALS: BP 122/86
[2018-04-01 21:01] VITALS: BP 140/74
[2018-04-02 06:11] VITALS: BP 110/64
--- NOTE | 2018-04-02 07:29 | PN- Student ---
See Addendum Law Olson 04/02/18 0708: Subjective Subjective: No abdominal pain, no nausea, no vomiting. Passing flatus, but no bowel movements. Tolerating diet. Making urine. OOB frequently. No chest pain, no shortness of breath, no calf pain. Anxious to go home. Objective Objective: Vitals Temp: 97.5 = Tcurrent 98.7=tmax Pulse: 55 Respiratory Rate: 20 BP: 110/64 Pulse Ox 96% room air I/O's I: 400 Oral 8hr, 880 oral 24 hr; 600 IV 8hr, 2000 IV 24 hr O: not recorded Imaging: None Physical Exam: General: No acute distress, alert and oriented Pulm: clear to auscultation bilaterally Cardio s1,s2, RRR Abdomen: softly distended, +bowel sounds, non tender. dressings intact with mild serosanguinous discharge. Extremities: calves soft and non tender bilaterally Results Results: Laboratory Tests 04/01/18 0613: Anion Gap 8, Estimated GFR > 60, BUN/Creatinine Ratio 17.1, Phosphorus 2.7, Magnesium 1.9, CBC w Diff NO MAN DIFF REQ, RBC 3.87 L, MCV 90.3, MCH 29.9, MCHC 33.1, RDW 13.6, MPV 10.3, Gran % 88.2 H, Lymphocytes % 6.9 L, Monocytes % 4.8, Eosinophils % 0, Basophils % 0.1, Absolute Granulocytes 9.3 H, Absolute Lymphocytes 0.7 L, Absolute Monocytes 0.5, Absolute Eosinophils 0, Absolute Basophils 0 03/31/18 0739: Anion Gap 10, Estimated GFR > 60, BUN/Creatinine Ratio 20.0, CBC w Diff NO MAN DIFF REQ, RBC 3.97 L, MCV 91.1, MCH 30.1, MCHC 33.1, RDW 13.9, MPV 10.0, Gran % 82.3 H, Lymphocytes % 10.8 L, Monocytes % 6.5, Eosinophils % 0.1, Basophils % 0.3, Absolute Granulocytes 8.1 H, Absolute Lymphocytes 1.1 L, Absolute Monocytes 0.6, Absolute Eosinophils 0, Absolute Basophils 0 03/30/182003: Anion Gap 17 H, Estimated GFR > 60, BUN/Creatinine Ratio 21.1, Glucose 118 H, Calcium 10.1, Total Bilirubin 0.4, Direct Bilirubin 0.3, AST 29, ALT 30, Alkaline Phosphatase 77, Troponin I < 0.01, Total Protein 6.8, Albumin 4.4, Amylase 75, Lipase 85, CBC w Diff NO MAN DIFF REQ, RBC 4.55, MCV 89.8, MCH 30.0, MCHC 33.4, RDW 13.6, MPV 9.4, Gran % 65.4, Lymphocytes % 26.3, Monocytes % 5.7, Eosinophils % 1.9, Basophils % 0.7, Absolute Granulocytes 4.7, Absolute Lymphocytes 1.9, Absolute Monocytes 0.4, Absolute Eosinophils 0.1, Absolute Basophils 0 Microbiology 03/31 1850 URINE ROUT: Urine Culture - RES Assessment/Plan Assessment: 77 year old female POD 2 for small bowel obstruction s/p lysis of adhesions. Doing well with no pain and tolerating clear diet, awaiting return of bowel function. Plan: Advance diet to fulls encourage OOB Heparin/ALPS for DVT prophylaxis Morphine, acetaminophen prn pain Zofran, Phenergen prn nausea Continue home meds Discuss with preceptor Ramez Martinez 04/02/18 0754: Assessment/Plan Plan: Seen an evaluated with TERRI. Agree with above. Patient reports pain is well controlled. She reports tolerating clears without nausea or vomiting. She reports belching and passing flatus. Ambulating oob. On exam, afebrile, vss, abdomen soft, obese, mildly distended, + bs, incisions healing well, no signs of infection, nontender on exam. POD 2 s/p lap florinda, recovering well with signs of bowel return. Advance to low fiber, cont supportive care, transition to oral pain meds. Anticipate d/c pending diet tolerance. D/w Dr. Gilliam
--- NOTE | 2018-04-02 08:07 | Patient Discharge Instructions ---
Discharge Instructions General Discharge Information You were seen/treated for: Intestinal obstruction You had these procedures: Laparoscopic lysis of adhesions on 04/02/18 Watch for these problems: Increased pain, fever > 101.3, redness, swelling or drainage from incisions, NAUSEA OR VOMITING No bath, but you may shower: Yes Other wound care: Keep incisions clean and dry Ok to shower, no baths/pools/hot tubs Diet Continue normal diet: No Recommended Diet: Low Residue Activity Activity Self Limited: Yes Pounds, do NOT lift more than: 10 Other activity limits: No heavy lifting or strenous activity Acute Coronary Syndrome Inclusion Criteria At DC or during hospital stay patient has or had the following: ACS DIAGNOSIS No Discharge Core Measures Meds if any: Prescribed or Continued at Discharge Meds if any: NOT Prescribed or Continued at Discharge Congestive Heart Failure Inclusion Criteria At DC or during hospital stay patient has or had the following: CHF DIAGNOSIS No Discharge Core Measures Meds if any: Prescribed or Continued at Discharge Meds if any: NOT Prescribed or Continued at Discharge Cerebrovascular accident Inclusion Criteria At DC or during hospital stay patient has or had the following: CVA/TIA Diagnosis No Discharge Core Measures Meds if any: Prescribed or Continued at Discharge Meds if any: NOT Prescribed or Continued at Discharge Venous thromboembolism Inclusion Criteria VTE Diagnosis No VTE Type NONE VTE Confirmed by (Test) NONE Discharge Core Measures - Per Current guidelines, there needs to be overlap - treatment for the first 5 days of Warfarin therapy. - If discharged on Warfarin prior to 5 days of - overlap therapy, the patient will need to be - assessed for post discharge needs including - *Post discharge parental anticoagulation - *Warfarin and/or parental anticoagulation education - *Follow up date to check INR post discharge At least 5 days overlap therapy as Inpatient No Meds if any: Prescribed or Continued at Discharge Note: Overlap Therapy is Warfarin and Anticoagulant Meds if any: NOT Prescribed or Continued at Discharge
[2018-04-02 09:57] VITALS: BP 112/60
--- NOTE | 2018-04-03 13:25 | Surgical Discharge Summary ---
Visit Information Visit Dates Admission Date: 03/31/18 Discharge Date: 04/02/18 History of Present Illness Chief Complaint: abdominal pain Medical History Blood Transfusion Hx: Yes Neurological: NONE EENT: allergies Cardiovascular: hypertension, hyperlipidemia Respiratory: NONE Gastrointestinal: GERD Hepatic: NONE Renal: NONE Musculoskeletal: L WRIST FX Psychiatric: NONE Endocrine: hypothyroidism Blood Disorders: NONE Cancer(s): NONE [employer]ER/Reproductive: NONE History of MRSA: No History of VRE: No History of CDIFF: No Isolation History: Standard Surgical History Pertinent Surgical History: knee replacement (bilateral), laparoscopic lysis adhesions Psychosocial History Where Do You Live? Home Who Do You Live With? Significant Other Services at Home: None What is Your Primary Language? Kiswahili ETOH Use: occasional use Review of Systems: see preop hp Hospital Course Course Attending Physician: Volodymyr Gilliam MD Primary Care Physician: Donna DUNBAR,[facility] Course: Admitted for bowel rest treatement of intestinal obstruction. Her symptoms progressed. She was taken to the OR for laparoscopic lysis adhesions. Post operatively she recovered well, diet was advanced and discharged home. Allergies: Coded Allergies: erythromycin base (HIVES 04/03/16) latex (RASH 04/03/16) morphine (Mild, MAKES HER "ANGRY" 08/17/17) polyethylene glycol 3350 (From MIRALAX) (Mild, MAKES HER "GAG" 08/17/17) Significant Procedures: Laparoscopic lysis adhesions. Disposition Summary Disposition Principal Diagnosis: SBO Additional Diagnosis: none Discharge Disposition: home or self care Discharge Instructions General Discharge Information Code Status: Full Code Patient's Diet: regular Patient's Activity: no lifting >20lbs Follow-Up Instructions/Appts: 2 weeks Medications at Discharge Discharge Medications: Continue taking these medications: Levothyroxine Sodium (Levothyroxine Sodium) 100 MCG TABLET 1 Tablet ORAL DAILY Qty = 90 Comments: PER PT Last Taken: 04/02/18 Time: 6AM Metoprolol Tartrate (Metoprolol Tartrate) 25 MG TABLET 1 Tablet ORAL TWICE DAILY Qty = 180 Comments: PER PT Last Taken: 04/02/18 Time: 10AM Magnesium Oxide (Magnesium) 500 MG CAPSULE 1 Capsule ORAL DAILY Comments: DID NOT ADMINISTER IN HOSPITAL Furosemide (Furosemide) 20 MG TABLET 3 Tablet ORAL DAILY as needed for EDEMA Comments: CHANGED TO 60 MG DAILY DID NOT ADMINISTER IN HOSPITAL Oxycodone HCl/Acetaminophen (Percocet 5-325 MG Tablet) 5 MG-325 MG TABLET 1-2 Tablet ORAL EVERY 4-6 HOURS as needed for PAIN Qty = 36 Comments: DID NOT ADMINISTER IN HOSPITAL Rosuvastatin Calcium (Crestor) 10 MG TABLET 1 Tablet ORAL DAILY Qty = 30 Comments: DID NOT ADMINISTER IN HOSPITAL Potassium Chloride (Potassium Chloride) 10 MEQ TABLET.ER 1 Tablet ORAL DAILY Qty = 90 Comments: DID NOT ADMINISTER IN HOSPITAL Doxycycline Hyclate (Doxycycline Hyclate) 100 MG CAPSULE 1 Capsule ORAL TWICE DAILY Qty = 90 Comments: DID NOT ADMINISTERED IN HOSPITAL Aspirin (Ecotrin*) 325 MG TABLET.DR 1 Tablet ORAL DAILY Comments: DID NOT ADMINISTER IN HOSPITAL Copies To: Donna DUNBAR,[place]
== END 2018-04-02 14:00 | DRG 336 ==
LOC: ERH 19:50 → 2NA 03-31 00:18 → ERHI 03-31 00:18 → ENRESERV 03-31 00:45 → 2NA 03-31 02:00 → ENTRNSPT 03-31 22:28 → EDTRNSPTSTS 03-31 22:45 → CMPTRNSPT 03-31 23:18 → ENPENDDIS 04-02 12:42 → 2NA 04-02 14:00
PROVIDERS: Nurse Practitioner; Pediatrics; Physician Assistant Surgical
PROC: 0DNA4ZZ Release Jejunum, Percutaneous Endoscopic Approach (ICD-10-PCS; principal; 2018-03-31)
DX: K56.50 Intestinal adhesions [bands], unspecified as to partial versus complete obstruction (principal); K95.89 Other complications of other bariatric procedure; Z87.891 Personal history of nicotine dependence; Y84.9 Medical procedure, unspecified as the cause of abnormal reaction of the patient, or of later complication, without mention of misadventure at the time of the procedure; I10 Essential (primary) hypertension; E78.5 Hyperlipidemia, unspecified; K21.9 Gastro-esophageal reflux disease without esophagitis; E03.9 Hypothyroidism, unspecified
CPT/HCPCS: 2NASP; 36592; 71045; 74177; 82436; 87086; 93005; 93010; 96361; 96374; 96375; 96376; J0131; J1644; J2405; J2550; J3490; J7042